=== PATIENT | male | born 1970 | race African-American/Black ===

== ENCOUNTER 2017-04-29 15:57 | Observation (INO) ==
[2017-04-29] MEDS ORDERED: Nitroglycerin 0.4 MG TAB.SUBL SL ONE (16:03)
[2017-04-29] MEDS ORDERED: 0.9 % Sodium Chloride 500 ML IVC ONE (16:03)
[2017-04-29] MEDS ORDERED: Aspirin 81 MG TAB.CHEW PO ONE (16:03)
--- NOTE | 2017-04-29 16:10 | Emergency Department Note ---
Disposition Clinical Impression: Elevated blood pressure reading, Pulmonary nodule Chest pain Qualifiers: Chest pain type: unspecified Qualified Code(s): R07.9 - Chest pain, unspecified Disposition: Admitted As Inpatient Condition: Fair Chest Pain HPI - General Chief Complaint: ED Chest Pain Stated Complaint: chest pain Time Seen by Provider: 04/29/17 16:00 Source: patient Mode of arrival: ambulatory Limitations: no limitations Vital Signs Reviewed: Yes Nursing Notes Reviewed: Yes - History of Present Illness HPI Narrative: 46-year-old male history of hypertension, coronary artery disease on Plavix and aspirin presents for evaluation of chest pain. Patient states the pain is left- sided with radiation to his left shoulder. Notes it happened 3 hours prior to arrival while exerting himself and walking. Notes that the pain has slightly subsided since initial presentation. Patient reports some diaphoresis but no nausea or vomiting. No dyspnea. No cough. No fevers. Patient states that he did have a stress test proximally 3 weeks ago. Patient denies any history of pulmonary embolism. No active cancers. Patient denies any recent trauma or surgery. Severity scale (1-10): 3 - Related Data Allergies Allergy/AdvReac Type Severity Reaction Status Date / Time No Known Allergies Allergy Verified 04/29/17 16:05 All systems ED: reviewed and negative except as stated. Constitutional: Reports: as per HPI. Denies: fever Eyes: Reports: as per HPI ENT ED: Reports: as per HPI Cardiovascular: Reports: as per HPI, chest pain Respiratory: Reports: as per HPI Gastrointestinal: Reports: as per HPI. Denies: abdominal pain, nausea, vomiting Genitourinary: Reports: as per HPI Musculoskeletal: Reports: as per HPI Integumentary: Reports: as per HPI Neurological: Reports: as per HPI Psychiatric: Reports: as per HPI Endocrine: Reports: as per HPI Hematological/Lymphatic: Reports: as per HPI Allergic/Immunologic: Reports: as per HPI Chest Pain PMH - Past Medical History Medical history: Reports: coronary artery disease, hypertension, myocardial infarction Psychiatric history: Reports: anxiety - Social History Smoking Status: Current every day smoker Alcohol use: Reports: none Drug use: Reports: marijuana Physical Exam - General Limitations: no limitations General appearance: alert, in no apparent distress - Head Head exam: atraumatic, normal inspection - Eye Eye exam: Present: normal appearance, EOMI - ENT ENT exam: normal exam, mucous membranes moist - Neck Neck exam: Present: normal inspection, trachea midline - Chest Chest inspection: Present: normal inspection, symmetric chest wall rise - Respiratory Respiratory exam: Present: normal lung sounds bilaterally. Absent: respiratory distress - Cardiovascular Cardiovascular exam: Present: normal rhythm, tachycardia. Absent: systolic murmur - Abdominal Exam Abdominal exam: Present: soft, Non-Tender - Back Exam Back exam: Present: normal inspection. Absent: CVA tenderness (R), CVA tenderness (L) - Neurological Exam Neurological exam: Present: alert, oriented X3 - Skin Skin exam: Present: warm, dry, intact, normal color Course Course Narrative: Patient seen and examined initially upon arrival. Patient appears a couple. Initial EKG obtained. Patient had cardiopulmonary evaluation. Disposition likely admission. - Reevaluation(s) Reevaluation #1: Patient's father states that the patient has not been taking his medication over the past 3-4 days. Patient has not been on his plavix or asprin. Time: 17:14 Reevaluation #2: Patient seen and examined. Patient explained plan of care. Patient states that his pain has improved. Patient states that he has been under a lot of stress recently broke up with his girlfriend. Time: 17:37 Vital Signs Temperature 98.5 F 04/29/17 15:59 Pulse Rate 130 04/29/17 15:59 Respiratory Rate 18 04/29/17 15:59 Blood Pressure 194/116 04/29/17 15:59 O2 Sat by Pulse Oximetry 100 04/29/17 15:59 Temperature 99.3 F 04/29/17 19:25 Pulse Rate 97 04/29/17 19:25 Respiratory Rate 20 04/29/17 19:25 Blood Pressure 164/97 04/29/17 19:25 O2 Sat by Pulse Oximetry 100 04/29/17 19:25 Oxygen Delivery Oxygen Delivery Room Air Chest Pain - MDM Narrative Medical decision making narrative: 46-year-old male presents for evaluation of chest pain. Patient does have risk factors for ACS chest pain. Patient also notes that he has several stressors in his life as he is recently broken up with his girlfriend of 30 years. Patient did have a concerning history with exertional pain that slightly subsided and is resolving in the emergency department. Patient did receive nitroglycerin. Patient was pain-free in the ER. Patient does have risk factors for acute coronary syndrome. Patient has not been taking his Plavix over the past few days. Patient also has not been taking his blood pressure medicine which included a beta jaeyln. Patient was given aspirin as well as Lopressor. Patient's symptoms were controlled in the emergency department. Patient's symptoms does not appear to be related to any pulmonary embolism or other etiology. Patient's pain improved with interventions provided. Patient will be admitted for further cardiac monitoring and cardiac evaluation. - Lab Data Lab results reviewed: Yes I reviewed the patient's lab results. Result diagrams: 04/29/17 16:13 04/29/17 16:13 Lab Results 04/29/17 04/29/17 04/29/17 Range/Units 16:13 16:13 16:13 WBC 10.3 (4.3-11.1) K/mcL RBC 4.39 (4.19-5.50) M/mcL Hgb 13.8 (12.9-16.9) g/dL Hct 39.0 (37.5-50.1) % MCV 88.8 (83.0-100.0) fL MCH 31.4 (28.0-33.3) pg MCHC 35.4 (31.6-35.5) g/dL RDW 12.6 (11.5-14.5) % Plt Count 312 (140-400) K/mcL MPV 10.1 (9.4-12.4) fL Immature Gran % 0.3 (0-4) % Seg Neutrophils % 64.8 % Lymphocytes % 24.4 % Monocytes % 8.0 % Eosinophils % 1.9 % Basophils % 0.6 % Neutrophils # 6.7 (1.6-8.9) K/mcL Lymphocytes # 2.5 (0.6-4.6) K/mcL Monocytes # 0.8 (0.0-1.3) K/mcL Eosinophils # 0.2 (0.0-0.6) K/mcL Basophils # 0.1 (0.0-0.2) K/mcL Sodium 138 (136-145) mEq/L Potassium 3.5 (3.5-4.5) mEq/L Chloride 103 (98-109) mEq/L Carbon Dioxide 18 L (19-29) mEq/L BUN 20 (8-26) mg/dL Creatinine 1.30 H (0.72-1.25) mg/dL Est GFR ( Amer) > 60 (> 60) Est GFR (Non-Af Amer) 59 L (> 60) BUN/Creatinine Ratio 15 (6-26) Glucose 70 (70-99) mg/dL Calculated Osmolality 287 (280-300) Calcium 10.0 (8.6-10.8) mg/dL Troponin I (0-0.03) ng/mL B-Natriuretic Peptide 68 (0-100) pg/mL 04/29/17 Range/Units 16:13 WBC (4.3-11.1) K/mcL RBC (4.19-5.50) M/mcL Hgb (12.9-16.9) g/dL Hct (37.5-50.1) % MCV (83.0-100.0) fL MCH (28.0-33.3) pg MCHC (31.6-35.5) g/dL RDW (11.5-14.5) % Plt Count (140-400) K/mcL MPV (9.4-12.4) fL Immature Gran % (0-4) % Seg Neutrophils % % Lymphocytes % % Monocytes % % Eosinophils % % Basophils % % Neutrophils # (1.6-8.9) K/mcL Lymphocytes # (0.6-4.6) K/mcL Monocytes # (0.0-1.3) K/mcL Eosinophils # (0.0-0.6) K/mcL Basophils # (0.0-0.2) K/mcL Sodium (136-145) mEq/L Potassium (3.5-4.5) mEq/L Chloride (98-109) mEq/L Carbon Dioxide (19-29) mEq/L BUN (8-26) mg/dL Creatinine (0.72-1.25) mg/dL Est GFR ( Amer) (> 60) Est GFR (Non-Af Amer) (> 60) BUN/Creatinine Ratio (6-26) Glucose (70-99) mg/dL Calculated Osmolality (280-300) Calcium (8.6-10.8) mg/dL Troponin I 0.03 (0-0.03) ng/mL B-Natriuretic Peptide (0-100) pg/mL - Radiology Data Radiology results reviewed: Yes I reviewed the patient's radiology results. Chest X-Ray 04/29/17 16:04 IMPRESSION: 7 mm nodule is seen at the right upper lobe and there is asymmetric right apical pleuroparenchymal thickening. While pneumonitis or scarring are most common, malignancy cannot be excluded in the appropriate clinical setting. Radiographic Follow-up to resolution is recommended. If this does not resolve, chest CT would be suggested for further characterization. D/ / Villa Morales MD / Villa Morales MD Interpreting Provider: Villa Morales MD - EKG Data EKG attestation: Yes I reviewed and interpreted this EKG. EKG shows normal: sinus rhythm Rate: tachycardia Rhythm: NSR [place]/QRS: normal ST segment depression in: II Q waves: v1, v2, v3 When compared to previous EKG there are: previous EKG unavailable Interpretation: nonspecific ST-T wave changes Heart Score - Score History: Moderately Suspicious EKG: Non Specific repolarisation Disturbance Age: 45-65 Risk Factors: Equal/Greater than 3 risk factor or history of atherosclerotic disease Troponin: Less than normal limit HEART Score Total: 5 S.B.A.R. - S.B.A.RShaun Situation: Demographics Background: Presenting Complaint Assessment: Vital Signs, Course and respsone to treatment, Patient/Family Expectation Recommendation: Barrier(s) to disposition, Recommendation based on pending studies, treatments, or consults S.B.A.RShaun Report Given to: Dr. Frank MishraBShaunAElsy Repor Time: 18:05 Attestation Statement - Attestation Attestation: I examined this patient and my medical decision-making was reviewed with the GIS TECHNICIAN/PA/Advanced Practice Nurse/Resident Physician. I agree with the documented findings, disposition and treatment plan as described except to the extent set forth below. 46-year-old male presents ED because of chest pain. He has had substernal chest pain intermittently for the past several hours. Radiation into his arm. Denies associated diaphoresis. Complains of exertional provocation of some symptoms similar to when he sat in the past with previous ischemic events. He does have [address] He has been noncompliant with medications including carvedilol and Plavix. He is not taking any of his medications for the past 3-4 days. He does however continue smoking. Denies any cocaine abuse. No stimulant use. Patient has hypotensive and tachycardic. Does not appear to be any acute physiologic distress. Oropharynx is clear. Neck supple. No JVD. Chest scattered expiratory wheezes. Cardiac exam tachycardic but regular. Chest wall is nontender. Abdomen soft nondistended nontender. Extremities warm and dry. No asymmetric edema. EKG consistent with old anteroseptal infarction age undetermined. There is mild ST depression along the inferior leads as well. He was given 5 mg Lopressor with improvement of his heart rate and blood pressure. He received aspirin and nitroglycerin as well with reduction of his pain. He will be admitted for further evaluation.
[2017-04-29 16:47] LABS: Basophils # 0.1 K/mcL (0.0-0.2); Basophils % 0.6 %; Eosinophils # 0.2 K/mcL (0.0-0.6); Eosinophils % 1.9 %; Hemoglobin 13.8 g/dL (12.9-16.9); Immature Granulocytes % 0.3 % (0-4); Lymphocytes # 2.5 K/mcL (0.6-4.6); Lymphocytes % 24.4 %; Mean Corpuscular HGB Conc 35.4 g/dL (31.6-35.5); Mean Corpuscular Hemoglobin 31.4 pg (28.0-33.3); Mean Corpuscular Volume 88.8 fL (83.0-100.0); Mean Platelet Volume 10.1 fL (9.4-12.4); Monocytes # 0.8 K/mcL (0.0-1.3); Neutrophils # 6.7 K/mcL (1.6-8.9); Platelet Count 312 K/mcL (140-400); Red Blood Count 4.39 M/mcL (4.19-5.50); Red Cell Distribution Width 12.6 % (11.5-14.5); Segmented Neutrophils % 64.8 %
[2017-04-29] MEDS ORDERED: *HR* Metoprolol 5 MG/5 ML VIAL IVP ONE (17:01)
[2017-04-29 17:02] LABS: BUN/Creatinine Ratio 15 (6-26); Blood Urea Nitrogen 20 mg/dL (8-26); Carbon Dioxide 18 mEq/L (19-29); Chloride 103 mEq/L (98-109); Glucose 70 mg/dL (70-99); Osmolality,Calculated 287 (280-300); Potassium 3.5 mEq/L (3.5-4.5); Sodium 138 mEq/L (136-145); eGFR For African Americans > 60 (> 60); eGFR For Non-African Americans 59 (> 60)
[2017-04-29] MEDS ORDERED: Acetaminophen 325 MG TABLET PO PRN (19:09)
[2017-04-29] MEDS ORDERED: *HR* Morphine 2 MG/ML SYRINGE IVP PRN (19:09)
[2017-04-29] MEDS ORDERED: *HR* HYDROcodone/Acet 5/325 mg TABLET PO PRN (19:09)
[2017-04-29] MEDS ORDERED: Naloxone 0.4 MG/ML INJ IVP PRN (19:09)
--- NOTE | 2017-04-29 19:16 | Event Note ---
Date of Encounter: 04/29/17 Time of Encounter: 19:13 Patient seen and examined with nurse practitioner. Patient presents with chest pain. Rule out acute coronary syndrome. Continue antischemic medications including dual antiplatelet therapy and beta blockers. His electrocardiogram shows Q waves in V1 to V3, no ST segment shifts. Check Serial troponin. Get records from outside hospital. His last angiogram was in November 2015. Cardiology consultation. Continuous telemetry monitoring
[2017-04-29] MEDS ORDERED: Nitroglycerin 0.4 MG TAB.SUBL SL PRN (19:22)
--- NOTE | 2017-04-29 20:38 | Internal Med History&Physical ---
Date of Encounter: 04/29/17 Time of Encounter: 18:30 Assessment and Plan (1) Chest pain Current visit: Yes Status: Acute Assess: Mr. Jack presents with chief complaint of left sided chest pain with radiation to his left shoulder which is worse with inspiration. Patient reports this is occurring intermittently for the past 2-3 weeks. He reports chest pain today occurred 3 hours prior to arriving to ED where he was walking and exerting himself. Mr. Jack reports diaphoresis with the chest pain but denies nausea vomiting, dyspnea, or diarrhea. Patient also denies cough, fever, or recent illness. Plan: Cardiology consult ordered Continuous cardiac telemetry ordered Trend troponins x2 Continue carvedilol Continue Plavix Continue aspirin Continue Lopressor Continue lisinopril Continue atorvastatin Obtain old EKG Supplemental O2 ordered with titration if SPO2 less than 92% INR/APTT ordered Lipid panel ordered Nitroglycerin 0.4 mg SL Q5MIN PRN ordered Cardiac diet ordered Monitor patient and vital signs Qualifiers: Chest pain type: unspecified Qualified Code(s): R07.9 - Chest pain, unspecified (2) Pulmonary nodule Current visit: Yes Status: Acute Assess: Patient presents with new diagnosis of 7 mm nodule at right upper lobe with asymmetric right apical pleuroparenchymal thickening. While pneumonitis or scarring her most common, malignancy cannot be excluded in appropriate clinical setting. Radiographic follow-up to resolution is recommended. Chest CT would be suggested for further characterization. Plan: CT of chest ordered Will consider pulmonology consult based on results of CT scan of chest (3) Hypertension Current visit: Yes Status: Chronic Assess: Patient presents with history of chronic hypertension. Plan: Continue Lopressor Continue lisinopril Continue Carvedilol Monitor patient and vital signs Qualifiers: Hypertension type: essential hypertension Qualified Code(s): I10 - Essential (primary) hypertension (4) CAD (coronary artery disease) Current visit: Yes Status: Chronic Assess: Patient presents with history of chronic coronary artery disease. Plan: Continue carvedilol Continue Plavix Continue aspirin Continue Lopressor Continue lisinopril Continue atorvastatin Lipid panel ordered Cardiac diet ordered Qualifiers: Coronary Disease-Associated Artery/Lesion type: unspecified vessel or lesion type [place] vs. transplanted heart: [place] heart Associated angina: angina presence unspecified Qualified Code(s): I25.10 - Atherosclerotic heart disease of [place] coronary artery without angina pectoris (5) DVT prophylaxis Current visit: Yes Status: Acute Assess: Patient to be placed on DVT prophylaxis due to inpatient protocol, history of CAD, and current chest pain status. Plan: SCDs ordered bilaterally for lower legs Continue Plavix Continue aspirin therapy Internal Medicine - H&P: HPI Chief complaint: Chest pain Admitted From: Emergency Dept Plans for Post Hospital Care: Home History of present illness: Mr. Jack is a 46 year old male presents from the ED with chief complaint of left sided chest pain with radiation to his left shoulder which is worse with inspiration. Patient reports this is occurring intermittently for the past 2-3 weeks. He reports chest pain today occurred 3 hours prior to arriving to ED where he was walking and exerting himself. Mr. Jack reports diaphoresis with the chest pain but denies nausea vomiting, dyspnea, or diarrhea. Patient also denies cough, fever, or recent illness. Mr. Jack also denies any recent trauma , surgery, active cancer, history of pulmonary embolisms. Patient reports having a stress test to 3 weeks ago at [facility]. He also reports not taking any of his medications or eating for the past 3 days due to a breakup in his relationship. States he was given home oxygen in the past but does not use currently. She reports she is a current smoker, smoking one half pack per day and occasionally uses marijuana. He denies alcohol use. Patient has a history of coronary artery disease, hypertension, myocardial infarction (see November 2015), and anxiety. Patient is to be admitted as observation status with continuous cardiac telemetry, trending troponins 2, a consult for cardiology which has been ordered in placed, and nitroglycerin when necessary. In order for records from [facility] has been placed for the patient's stress test results as well as any other cardiac pathology testing and results. Patient to be monitored closely. Past Med Surg Social Fam HX - Past Medical History Source: patient Medical history: coronary artery disease, hypertension, myocardial infarction ( November 2015) Psychiatric history: anxiety - Past Surgical History Surgical History: angioplasty/stent, appendectomy, other - Social History Smoking Status: Current every day smoker Packs per day: 1 PPD Smokeless Tobacco Status: No Alcohol use: none Drug use: marijuana Current living situation: Home, With Family Activity Level: Independent ambulation Recent Out of Country Travel Within the Last 8 Weeks: No Exposure or Possible Exposure to Illness During Travel: No - Family History Mother Age: 68 Race: Family Member Ethnicity: Non- Living Status: Still Living Hx Family Cardiac Disorders: Yes (HTN) Hx Family Endocrine Disorder: Yes (DM) Hx Family Musculoskeletal Disorders: Yes (Arthritis) Father Race: Family Member Ethnicity: Non- Living Status: Still Living Hx Family Cardiac Disorders: Yes (HTN) Sister Race: Family Member Ethnicity: Non- Living Status: Still Living Hx Family Medical Disorders: No Internal Medicine - H&P: Meds Aspirin Enteric Coated [Aspirin EC] 81 mg PO DAILY 04/29/17 [History] Atorvastatin Calcium [Lipitor] 80 mg PO HS 04/29/17 [History] Carvedilol 3.125 mg PO BID 04/29/17 [History] Citalopram [CeleXA] 10 mg PO DAILY 04/29/17 [History] Clopidogrel [Plavix] 75 mg PO DAILY 04/29/17 [History] Lisinopril [Zestril] 20 mg PO DAILY 04/29/17 [History] Naproxen Sodium [Naproxen Sodium Cr] 500 mg PO BID 04/29/17 [History] Ondansetron [Zofran] 8 mg PO Q8HR 04/29/17 [History] Pantoprazole Sodium [Protonix] 40 mg PO DAILY 04/29/17 [History] Ranolazine [Ranexa] 500 mg PO DAILY 04/29/17 [History] Triamterene/HCTZ 37.5/25mg [Dyazide] 1 each PO DAILY 04/29/17 [History] Allergies No Known Allergies Allergy (Verified 04/29/17 16:05) All Systems PM: A 10-system review of systems was performed and is negative for pertinent findings except as documented above in the HPI. - Constitutional Constitutional: as per HPI, anorexia - EENT Eyes: no change in vision, no discharge, no pain, no photophobia Ears: no ear discharge, no ear pain, no tinnitus Nose, mouth and throat: no dysphagia, no nasal discharge, no neck pain, no sore throat - Breasts Breasts: as per HPI - Cardiovascular Cardiovascular ROS IM: as per HPI, chest pain, diaphoresis - Respiratory Respiratory: no cough, no dyspnea, no wheezing, no excessive phlegm production - Gastrointestinal Gastrointestinal: no abdominal pain, no diarrhea, no hematemesis, no hematochezia, no melena, no nausea, no vomiting - Genitourinary Genitourinary ROS male: as per HPI - Musculoskeletal Musculoskeletal ROS IM: no numbness, no tingling - Integumentary Integumentary IM: no rash, no unusual bruising - Neurological Neurological ROS: no confusion, no convulsions, no focal weakness, no numbness, no tingling, no tremor(s) - Psychiatric Psychiatric: as per HPI - Endocrine Endocrine IM: as per HPI - Hematologic/Lymphatic Hematologic/Lymphatic: no easy bruising - Allergic/Immunologic Allergic/Immunologic: as per HPI - Constitutional Vitals: Temp Pulse Resp BP Pulse Ox 99.3 F 97 20 164/97 100 04/29/17 19:25 04/29/17 19:25 04/29/17 19:25 04/29/17 19:25 04/29/17 19:25 General appearance: Present: cooperative, A&O X 3, pleasant, no acute distress, answers questions appropriately - Head Head exam: Present: atraumatic, normocephalic - Eye Eye exam: Present: PERRL, conjuntiva pink, sclera anicteric Pupils: Present: PERRL - ENT ENT exam: Present: normal exam, normal external ear exam - Neck Neck exam general surgery: Present: supple, trachea midline. Absent: lymphadenopathy - Respiratory Respiratory exam: Present: CTAB. Absent: accessory muscle use, rales, rhonchi, wheezes - Cardiovascular Cardiovascular exam: Present: tachycardia - GI/Abdominal GI/Abdominal exam: Present: normal bowel sounds, soft, no peritoneal signs. Absent: distended, tenderness - Rectal Rectal exam: Present: deferred - Additional comments: exam deferred. - Extremities Exam Extremities exam: Present: warm, radial pulses palpable and symetrical. Absent : calf tenderness, cyanotic, pedal edema - Back Exam Back exam: Present: normal inspection - Neurological Exam Neurological exam: Present: CN II-XII intact, oriented X3, no focal deficits. Absent: pronater drift, facial droop, speech deficit - Psychiatric Psychiatric exam: Present: normal affect, normal mood - Skin Skin exam: Present: dry, intact Internal Med - H&P Results - Labs CBC & Chem 7: 04/29/17 16:13 04/29/17 16:13 - EKG Data EKG shows normal: sinus rhythm Rate: tachycardia - EKG Data Prior EKG available for review: no EKG comments: 04/29/17 20:46 EKG dated 04/29/17 shows sinus tachycardia, anteroseptal myocardial infarction [ 40+ ms Q wave in V1-V4] of indeterminate age. - Diagnostic Studies Chest x-ray Additional comments: Impressions Chest X-Ray 04/29/17 16:04 IMPRESSION: 7 mm nodule is seen at the right upper lobe and there is asymmetric right apical pleuroparenchymal thickening. While pneumonitis or scarring are most common, malignancy cannot be excluded in the appropriate clinical setting. Radiographic Follow-up to resolution is recommended. If this does not resolve, chest CT would be suggested for further characterization. D/ / Villa Morales MD / Villa Morales MD Interpreting Provider: Villa Morales MD
[2017-04-29] MEDS ORDERED: *HR* Heparin 5,000 UNIT/ML VIAL SQ SCH (22:00)
[2017-04-30 05:22] LABS: Prothrombin Time 10.7 Seconds (9.4-12.1)
[2017-04-30 05:24] LABS: Basophils # 0.1 K/mcL (0.0-0.2); Basophils % 0.7 %; Eosinophils # 0.5 K/mcL (0.0-0.6); Eosinophils % 4.5 %; Hematocrit 40.4 % (37.5-50.1); Hemoglobin 13.9 g/dL (12.9-16.9); Immature Granulocytes % 0.4 % (0-4); Lymphocytes # 3.4 K/mcL (0.6-4.6); Lymphocytes % 32.7 %; Mean Corpuscular HGB Conc 34.4 g/dL (31.6-35.5); Mean Corpuscular Hemoglobin 31.3 pg (28.0-33.3); Mean Platelet Volume 9.9 fL (9.4-12.4); Monocytes # 0.9 K/mcL (0.0-1.3); Monocytes % 8.9 %; Neutrophils # 5.5 K/mcL (1.6-8.9); Platelet Count 316 K/mcL (140-400); Red Blood Count 4.44 M/mcL (4.19-5.50); Red Cell Distribution Width 12.7 % (11.5-14.5); Segmented Neutrophils % 52.8 %
[2017-04-30 05:25] LABS: Activated Partial Thrombo Time 31.3 Seconds (26.0-36.0)
[2017-04-30 05:38] LABS: Alanine Aminotransferase 53 Units/L (0-55); Albumin 3.6 g/dL (3.5-5.0); Albumin/Globulin Ratio 1.1 (1.1-2.2); Alkaline Phosphatase 70 Units/L (38-126); Aspartate Amino Transferase 43 Units/L (5-34); BUN/Creatinine Ratio 16 (6-26); Bilirubin,Total 0.7 mg/dL (0.2-1.2); Blood Urea Nitrogen 20 mg/dL (8-26); Calcium 9.4 mg/dL (8.6-10.8); Carbon Dioxide 26 mEq/L (19-29); Chloride 105 mEq/L (98-109); Chol/HDL Ratio 4.2 (0-4.9); Cholesterol 162 mg/dL (< 200); Globulin 3.2 g/dL (2.4-3.5); Glucose 68 mg/dL (70-99); HDL Cholesterol 39 mg/dL (40-59); LDL Cholesterol,Calculated 112 mg/dL (0-99); Osmolality,Calculated 291 (280-300); Potassium 4.1 mEq/L (3.5-4.5); Sodium 140 mEq/L (136-145); Total Protein 6.8 g/dL (6.0-8.3); Triglycerides 57 mg/dL (< 150); eGFR For African Americans > 60 (> 60); eGFR For Non-African Americans > 60 (> 60)
[2017-04-30] MEDS ORDERED: Aspirin Enteric Coated 81 MG Tablet PO SCH (09:00)
[2017-04-30] MEDS ORDERED: Lisinopril 20 MG TABLET PO SCH (09:00)
[2017-04-30] MEDS ORDERED: Ranolazine 500 MG TAB.ER.12H PO SCH (09:00)
--- NOTE | 2017-04-30 09:49 | Cardiology Consult Note ---
Date of Encounter: 04/30/17 Time of Encounter: 09:41 Assessment and Plan (1) Chest pain Current Visit: Yes Status: Acute Typical chest pain symptoms. Mild flat troponin at 0.03, 0.04, 0.04 in the setting of CKD and uncontrolled HTN. EKG show ST, HR 125 BPM, Q waves in the anterior and septal leads. History of NC 11/2015. He reports non-compliance with medications. Importance of taking medications reviewed with patient. Smoking cessation discussed. Reports abnormal stress test two weeks ago at [facility]. Follows with Dr. Magana. Records ordered. Further recommendations pending records. Qualifiers: Chest pain type: unspecified Qualified Code(s): R07.9 - Chest pain, unspecified (2) Hypertension Current Visit: Yes Status: Acute Uncontrolled hypertension. Patient reports non-compliance with medications. B/p now acceptable. Qualifiers: Hypertension type: essential hypertension Qualified Code(s): I10 - Essential (primary) hypertension (3) CAD (coronary artery disease) Current Visit: Yes Status: Chronic H/o NC in November 2015 s/p PCI at [facility]. Continue asa, statin, bb, plavix, and Ranexa. Qualifiers: Coronary Disease-Associated Artery/Lesion type: unspecified vessel or lesion type [place] vs. transplanted heart: [place] heart Associated angina: angina presence unspecified Qualified Code(s): I25.10 - Atherosclerotic heart disease of [place] coronary artery without angina pectoris Discussion w patient/family: The assessment and plan as outlined above was discussed with the patient and/or family members who expressed understanding and agreement. All questions were answered. Thank you for involving us in the care of your patient. Please call with any questions. History of Present Illness Consult date: 04/30/17 Requesting physician: Paula Pires Consult reason: Chest pain Chief complaint: Chest pain History of present illness: Mr. Jack is a 46 year old male with a past medical history of NC s/p PCI 2015 at [facility], HTN, and CKD who presented with chest pain. He reports midsternal chest pain radiating to his left neck and dyspnea when he was arguing with someone. He did not have his nitroglycerine on him so he presented to the hospital. He reports intermittent chest pain with exertion over the past two weeks that resolves with rest and SL NTG. He follows with Dr. Magana in [place] and underwent a stress test two weeks ago. He states the results were "mena" and he was discussing having a [facility]. He stopped taking all of his medications four days ago. He says he often does not take his medications because he does not like to take pills. His b/p was found to be 196/ 116 on admission. Lab work revealed creatinine 1.30, troponin 0.03, 0.04, 0.04. There are no previous labs to compare. Past Med Surg Social Fam HX - Past Medical History Medical history: coronary artery disease, hypertension, myocardial infarction ( November 2015) Psychiatric history: anxiety - Past Surgical History Surgical History: angioplasty/stent, appendectomy, other - Social History Smoking Status: Current every day smoker Packs per day: 1 PPD Smokeless Tobacco Status: No Alcohol use: none Drug use: marijuana - Family History Mother Age: 68 Race: Family Member Ethnicity: Non- Living Status: Still Living Hx Family Cardiac Disorders: Yes (HTN) Hx Family Endocrine Disorder: Yes (DM) Hx Family Musculoskeletal Disorders: Yes (Arthritis) Father Race: Family Member Ethnicity: Non- Living Status: Still Living Hx Family Cardiac Disorders: Yes (HTN) Sister Race: Family Member Ethnicity: Non- Living Status: Still Living Hx Family Medical Disorders: No Medications and Allergies Aspirin Enteric Coated [Aspirin EC] 81 mg PO DAILY 04/29/17 [History] Atorvastatin Calcium [Lipitor] 80 mg PO HS 04/29/17 [History] Carvedilol 3.125 mg PO BID 04/29/17 [History] Citalopram [CeleXA] 10 mg PO DAILY 04/29/17 [History] Clopidogrel [Plavix] 75 mg PO DAILY 04/29/17 [History] Lisinopril [Zestril] 20 mg PO DAILY 04/29/17 [History] Naproxen Sodium [Naproxen Sodium Cr] 500 mg PO BID 04/29/17 [History] Ondansetron [Zofran] 8 mg PO Q8HR 04/29/17 [History] Pantoprazole Sodium [Protonix] 40 mg PO DAILY 04/29/17 [History] Ranolazine [Ranexa] 500 mg PO DAILY 04/29/17 [History] Triamterene/HCTZ 37.5/25mg [Dyazide] 1 each PO DAILY 04/29/17 [History] Allergies No Known Allergies Allergy (Verified 04/29/17 16:05) All Systems Review: A 10-system review of systems was performed and is negative for pertinent findings except as documented above in the HPI. Physical Examination Vital Signs, Last 4 Hours Temp Pulse Resp BP Pulse Ox 04/30/17 09:22 99 04/30/17 07:25 98.4 F 89 17 147/93 99 General: Conversant, No Apparent Distress HEENT: Atraumatic, Normocephaly, Mucus Membranes Moist Neck: No JVD, Normal carotid pulses Cardiac: Reg Rate and Rhythm, Normal S1 and S2, No Murmur Lungs: Normal Breath Sounds, No Wheeze, Rales, Rhonchi Neuro: Alert and responsive, No focal deficits noted Abdomen: Soft, Non-Tender Skin: No rashes noted on visualized skin Musculoskeletal: No Chest Wall Tenderness Extremities: No Clubbing, No Cyanosis, No Edema, Normal Pulses Results 04/30/17 04:53 04/30/17 04:53 Lab Results 04/29/17 04/29/17 04/30/17 19:46 22:15 04:53 WBC 10.3 Hgb 13.9 Hct 40.4 Plt Count 316 INR APTT D-Dimer 234 Sodium Potassium Chloride Carbon Dioxide BUN Creatinine Glucose Calcium Magnesium Total Bilirubin AST ALT Alkaline Phosphatase Troponin I 0.04 H* B-Natriuretic Peptide 04/30/17 04/30/17 04/30/17 04:53 04:53 04:53 WBC Hgb Hct Plt Count INR 1.0 APTT 31.3 D-Dimer Sodium 140 Potassium 4.1 Chloride 105 Carbon Dioxide 26 BUN 20 Creatinine 1.26 H Glucose 68 L Calcium 9.4 Magnesium 2.0 Total Bilirubin 0.7 AST 43 H ALT 53 Alkaline Phosphatase 70 Troponin I B-Natriuretic Peptide 90 04/30/17 04:53 WBC Hgb Hct Plt Count INR APTT D-Dimer Sodium Potassium Chloride Carbon Dioxide BUN Creatinine Glucose Calcium Magnesium Total Bilirubin AST ALT Alkaline Phosphatase Troponin I 0.04 H* B-Natriuretic Peptide - EKG Interpretation EKG results cardiology: personally reviewed (Sinus tachycardia, HR 125. Q waves noted in anteroseptal leads.) Consult Discharge Plan - Plan Referrals: NO,PCP [Primary Care Provider] -
[2017-04-30] MEDS ORDERED: Verapamil 5 MG/2 ML VIAL ONE (13:14)
[2017-04-30] MEDS ORDERED: *HR* Heparin 10,000 UNIT/10 ML VIAL ONE (13:15)
[2017-04-30] MEDS ORDERED: 0.9 % Sodium Chloride 2,000 ML ONE (13:15)
[2017-04-30] MEDS ORDERED: Nitroglycerin 1,000 MCG/10 ML VIAL IV ONE (13:15)
[2017-04-30] MEDS ORDERED: Heparin 1,000 UNITS/500 mL NS 500 ML ONE (13:15)
--- NOTE | 2017-04-30 14:18 | Pre-Sedation Evaluation ---
Pre-sedation evaluation - Pre-sedation checklist Date of procedure: 04/30/17 Procedure: [facility] Recent Vitals: Last Vital Signs Temp 98.1 F 04/30/17 11:16 Pulse 99 04/30/17 11:16 Resp 18 04/30/17 11:16 BP 145/94 04/30/17 11:16 Pulse Ox 97 04/30/17 11:16 H&P (including ROS) documented in medical record: Yes Previous reaction to sedatives/anesthetics: No Dietary Status: NPO 6 hours prior to procedure Dentition: poor dentition ASA Classification *see protocol: CLASS II-Mild systemic disease Plan of Care: Pt appropriate candidate for procedure/moderate/conscious sedation , Risks/benefits of procedure/sedation discussed w/ patient/family
[2017-04-30] MEDS ORDERED: *HR* FentaNYL (PF) 100 MCG/2 ML VIAL ONE (14:26)
[2017-04-30] MEDS ORDERED: *HR* Midazolam HCl 2 MG/2 ML VIAL ONE ×2 (14:26→14:43)
[2017-04-30] MEDS ORDERED: *HR* Adenosine 6 MG/2 ML VIAL IVP ONE (14:53)
--- NOTE | 2017-04-30 15:28 | Invasive Diagnostic Lab Proc ---
Name: Carl Jack Date of Study: 04/30/2017 Date: 1970 Ht: 70.9in Medical Record#: [id number] Age: 46 Wt: 163.14lb Gender: Male BSA: 1.93 Order #: [id number] BMI: 22.84 Physicians Procedure Physician: Oswaldo Mancilla MD, [facility] Referring MD: Referring MD: Staff Name Position Time In Martha Saeed RT Monitor 02:28 PM Varghese Valverdee RT (R) Scrub 02:28 PM Sonya Costa RN Client Business Manager 02:28 PM Indications Indication Unstable Angina Procedures Performed Procedure L HRT ARTERY/VENTRICLE ANGIO IV Doppler BLD Flow 1st Vessel Pre-Procedure Checklist Informed consent is complete signed and on chart. H\\T\\P is on chart. ID band is on and ID verified with patient. Patient NPO for procedure The procedure was described for the patient and questions were answered. Blood Pressure: 145/94 ECG is on chart. Plan of Care Patient will tolerate the procedure without complications. Adequate level of comfort will be maintained. Hemodynamics will remain stable Patient will recover from procedure without complications. Respiratory function will be maintained. Cardiac rhythm will remain stable. Patient temperature will be maintained. Patient and/or family have verbalized understanding of the procedure. Patient Education Chief Complaint/Reason for Test: Cardiac Cath Developmental Category: Adult (18-64 years) Developmentally Appropriate for Age: Yes Learning Barriers: None Education Needs: Procedure Education Method: Verbal Information Taught: Cardiac Cath Educational Evaluation: Able to repeat information Intravenous Access Time IV Size Location DC'd Fluid/Drip Rate Units RN 02:20 PM 18g 1 /" Patent On Arrival Lt Antecubital 0.9NaCl 25 ml/hr Sonya Costa RN Allergies No Known Allergies Vital Signs Time BP (mmHg) HR (bpm) O2 Sat. RR (bpm) LOC 145 / 94 99 97 % 18 02:29 PM / % 5 = Fully awake and oriented or at pre-proc level 02:29 PM / % 4 = Oriented but drowsy 02:44 PM / % 4 = Oriented but drowsy 02:59 PM / % 4 = Oriented but drowsy 02:21 PM 126 / 75 85 94 % 02:26 PM 137 / 86 77 100 % 16 02:31 PM 131 / 82 87 100 % 22 02:36 PM 116 / 99 94 100 % 10 02:41 PM 126 / 90 84 97 % 22 02:46 PM 73 / 61 95 98 % 12 02:47 PM 82 / 55 106 96 % 23 02:50 PM 115 / 66 82 98 % 13 02:51 PM 109 / 62 86 98 % 02:56 PM 115 / 66 79 98 % 26 03:01 PM 120 / 73 80 99 % 21 03:06 PM 123 / 69 77 98 % 18 03:12 PM 127 / 71 67 98 % 14 Procedural Medications Time Medication Dose Units Method Given By 02:34 PM Oxygen 2 L/min nasal cannula Igor, Sonya RAZO 02:34 PM Versed 2 mg Intravenous [place], Sonya RAZO 02:35 PM Fentanyl 50 mcg Intravenous Igor, Sonya RAZO 02:43 PM Versed 1 mg Intravenous Igor, Sonya RAZO 02:43 PM Fentanyl 25 mcg Intravenous Igor, Sonya RAZO 02:43 PM Lidocaine 2% 0.5 ml Subcutaneous Oswaldo Mancilla MD, [facility] 02:44 PM Heparin 4000 units Nitroglycerin 200 mcg Verapamil 2.5 mg Intraarterial Oswaldo Mancilla MD, [facility] 02:49 PM Nitroglycerin 200 mcg Intracoronary Oswaldo Mancilla MD 03:10 PM Versed 1 mg Intravenous Igor, Sonya RAZO 03:10 PM Fentanyl 25 mcg Intravenous Igor, Sonya RAZO 03:11 PM Adenosine 200 mcg Intracoronary Oswaldo Mancilla MD, [facility] 03:12 PM Adenosine 200 mcg Intracoronary Oswaldo Mancilla MD, [facility] ASA Classification: CLASS II- Mild systemic disease (i.e. well-controlled diabetes, hypertension, asthma, cigarette smoking) Jessica Score Preprocedure Postprocedure Activity 2- Moves 4 extremities sustained head lift Activity 2- Moves 4 extremities sustained head lift Circulation 2- SBP +/= 20 points of pre-anesthetic level Circulation 2- SBP +/= 20 points of pre-anesthetic level Consciousness 2- Awake and alert oriented x 3 Consciousness 2- Awake and alert oriented x 3 O2 Saturation 2- Able to maintain O2 satruation of 92% on room air O2 Saturation 2- Able to maintain O2 satruation of 92% on room air Respiratory 2- Able to deep breathe and cough well Respiratory 2- Able to deep breathe and cough well Total Score 10 Total Score 10 Contrast Agent: Isovue Diagnostic Contrast: 68 ml Total Contrast: 68 ml Fluoro Dose: 97 mGy Activated Clotting Time Time Seconds to Clot 03:03 PM 400 Procedure Log Time Note Enter By 02:21 PM CathStat 02:21 PM Vitals capture started with the following parameters, Patient=Adult, Interval=5 min, Initial Iawtcywq=815 mmHg, Deflation Rate=5 mmHg, Cuff placed on Left Arm 02: PM HR=85 bpm, BWQN=623/75 mmhg, SpO2=94.0 %, Comment=sr 02:26 PM HR=77 bpm, ZWRT=730/86 mmhg, RjC6=227 %, Resp=16 B/min 02: PM Pt arrived to wharf laborer 1 at 14: kkallner : PM Martha Saeed RT Position: Monitor Time in: :ner PM Ratna Valverde RT (R) Position: Scrub Time in: : PM Sonya Costa RN Position: Client Business Manager Time in: : kkner : PM Patient charges- Angio tray pack, Navilyst 3mm J, Pulse Oximetry and ACIST tubing and transducer kkner : PM Case Delayed No kk PM Hair removed from procedure site in procedure lab using clippers. Right wrist prepped with Chloraprep by Martha Saeed, safety strap applied then patient was draped. Skin intact. kk: PM Physician arrived : kkallner PM ASA Class CLASS II- Mild systemic disease (i.e. well-controlled diabetes, hypertension, asthma, cigarette smoking) kkallner : PM Meet and greet completed PM Sign in performed according to hospital policy. : PM Procedure start : PM Time: 14:29 Patient comfortable and pain free: Yes PM Time: 14:LOC: 5 = Fully awake and oriented or at pre-proc level kkall PM Clinical Presentation: Unstable angina kkall:31 PM HR=87 bpm, TJNE=725/82 mmhg, QoP1=764.0 %, Resp=22 B/min 02:34 PM Time: 14:34 Oxygen on at 2 L/min per nasal cannula by Sonya Costa RN kkallner 02:34 PM Time: 14:34 Versed 2 mg Intravenous Given by Sonya Cotsa RN kkner 02:35 PM Time: 14:35 Fentanyl 50 mcg Intravenous Given by Sonya Costa RN kkner 02:36 PM HR=94 bpm, PYNT=296/99 mmhg, CsT7=124.0 %, Resp=10 B/min, Comment=sr 02:37 PM Pressure channel 1 zeroed. 02:41 PM HR=84 bpm, SNCC=595/90 mmhg, SpO2=97.0 %, Resp=22 B/min 02:43 PM Time out performed according to hospital policy 02:43 PM Time: 14:43 Versed 1 mg Intravenous Given by Sonya Costa RN kkdelia 02:43 PM Time: 14:43 Fentanyl 25 mcg Intravenous Given by Sonya Costa RN kk 02:43 PM Time: 14:43 .5 ml Lidocaine 2% to right radial Subcutaneous Given by Oswaldo Mancilla MD, [facility] kkallner 02:44 PM Access obtained by percutaneous puncture. 6Fr 10cm Terumo Glidesheath sheath placed in right Radial artery. [id number] all 02:44 PM Time: 14:29LOC: 4 = Oriented but drowsy 02:44 PM Time: 14:29 Patient comfortable and pain free: Yes all 02:44 PM Time: 14:44 Patient given 4,000 units Heparin, 200 mcg Nitroglycerin, and 2.5 mg Verapamil Intraarterial by Oswaldo Mancilla MD, [facility] kkallner 02:45 PM 5Fr TIG catheter inserted over the wire [facility] kkall 02:45 PM wire removed kkallner 02:46 PM Catheter selectively placed in left ventricle kkallner 02:46 PM HR=95 bpm, NIBP=73/61 mmhg, SpO2=98.0 %, Resp=12 B/min 02:46 PM Recorded Pressure: LV, HR=96, Condition=Condition 1 (Left Ventricle) LV 78/2/6 02:46 PM Bolus angiogram of left Ventricle complete: 10 ml/sec for a total of 30 mls kkallner 02:47 PM NIBP STAT measurement started. 02:47 PM XX=702 bpm, NIBP=82/55 mmhg, SpO2=96.0 %, Resp=23 B/min 02:47 PM Recorded Pressure: LV, Ao, HR=89, Condition=Condition 1 (Left Ventricle) LV 76/4/3, (Aorta) Ao 85/24/52 02:47 PM TIG repositioned into LCA kkallner 02:48 PM Recorded Pressure: Ao, HR=91, Condition=Condition 1 (Aorta) Ao 94/82/88 02:48 PM LCA angiography performed in multiple views. kkallner 02:49 PM NIBP STAT measurement started. 02:49 PM TIG repostioned into RCA kkallner 02:49 PM RCA angiography performed in multiple views. kkallner 02:49 PM Recorded Pressure: Ao, HR=84, Condition=Condition 1 (Aorta) Ao 101/84/93 02:49 PM Time: 14:49 Nitroglycerin 200 mcg Intracoronary Given by Oswaldo Mancilla MD kkallner 02:50 PM HR=82 bpm, QMYO=247/66 mmhg, SpO2=98.0 %, Resp=13 B/min 02:51 PM HR=86 bpm, HEQA=354/62 mmhg, SpO2=98.0 % 02:53 PM Catheter removed kkallner 02:54 PM 6Fr JR 4 Runway guide catheter was used to cannulate the PCI vessel successfully. reused? No kkallner 02:54 PM wire removed kkallner 02:54 PM Inflation device was opened. kkallner 02:56 PM HR=79 bpm, ISDB=735/66 mmhg, SpO2=98.0 %, Resp=26 B/min 02:59 PM Time: 14:44 Patient comfortable and pain free: Yes all 02:59 PM Time: 14:44LOC: 4 = Oriented but drowsy kkallner 02:59 PM Lesion found in Mid Circumflex. Pre Stenosis: 20 Pre NIYAH Flow: allner 03:01 PM HR=80 bpm, EVGC=041/73 mmhg, SpO2=99.0 %, Resp=21 B/min 03:03 PM At 15:03 the ACT was 400 seconds. kkallner 03:06 PM HR=77 bpm, ZOEC=097/69 mmhg, SpO2=98.0 %, Resp=18 B/min 03:10 PM [employer] wire advanced to target lesion. allner 03:10 PM Time: 15:10 Versed 1 mg Intravenous Given by [place], Sonya RN kkallner 03:10 PM Time: 15:10 Fentanyl 25 mcg Intravenous Given by Sonya Costa RN kkallner 03:11 PM Time: 15:11 Adenosine 200 mcg administered Intracoronary by Oswaldo Mancilla MD, [facility] kkallner 03:11 PM FFR Measurement: 0.86 kkallner 03:12 PM Lesion found in Proximal RCA. Pre Stenosis: 60 Pre NIYAH Flow: kkallner 03:12 PM Left Main Coronary Artery with 0% stenosis kkallner 03:12 PM Proximal Left Anterior Descending Coronary Artery with 0% stenosis. If graft is supplying this territory, 0 % stenosis. kkallner 03:12 PM Mid/Distal Left Anterior Descending Coronary Artery and diagonal branches with 0% stenosis. If graft is supplying this area, 0 % stenosis kkallner 03:12 PM Circumflex, Obtuse Marginal, Left Posterior Descending, and Left Posterolateral Coronary Arteries with 20 % stenosis. If graft is supplying this area, 0 % stenosis kkallner 03:12 PM HR=67 bpm, RQZX=727/71 mmhg, SpO2=98.0 %, Resp=14 B/min 03:12 PM Right Coronary, Right Posterior Descending Arteries with Right Posterolateral and Acute Marginal branches with 60 % stenosis. If graft is supplying this area, 0 % stenosis kkallner 03:12 PM Ramus with 0% stenosis. If graft is supplying this area, 0 % stenosis kkallner 03:12 PM Time: 15:12 Adenosine 200 mcg administered Intracoronary by Oswaldo Mancilla MD, [facility] kkallner 03:12 PM FFR Measurement: 0.89 kkallner 03:14 PM Time: 14:59LOC: 4 = Oriented but drowsy kkallner 03:14 PM Time: 14:59 Patient comfortable and pain free: Yes kkallner 03:15 PM Procedure completed at 15:15 kkallner 03:15 PM Sign out completed: Radiation Dose 97.44 mGy Fluoro Time: 3.0 Isovue 370 - 200ml contrast 68 ml given by Oswaldo Mancilla MD, FACC. Complications: NoneCardiac Rehab Consult needed: NoConfirmed administered medications: Yes kkallner 03:15 PM Isovue 370 - 200ml,1 Bottle(s) used. kkallner 03:15 PM 12 ml air in Vasc Band. kkallner 03:15 PM Post ECG NSR kkallner 03:15 PM Post Blood Pressure 127/71 kkallner 03:15 PM 15:15 Post Pulses Rt Radial 2+ kkallner 03:16 PM Information taught Cardiac Cath and Vasc Band kkallner 03:16 PM Education needs Procedure, Plan of Care, and Responsibilities of Patient in Care kkallner 03:16 PM Learning barriers :None kkallner 03:16 PM Education Methods Verbal kkallner 03:16 PM Education evaluation Able to repeat information kkallner 03:16 PM Site status No bleeding/hematoma - Rt Wrist as reported by Ratna Valverde RT (R) at 15:16 kkallner 03:16 PM Plavix, Effient or Brilinta given No kkallner 03:16 PM Delay to floor No kkallner 03:16 PM Patient out of room: 15:16 kkallner 03:16 PM no family at this time kkallner 03:16 PM Complications: None kkallner 03:16 PM Fluoro Time: 3 kkallner 03:16 PM Isovue 370 - 200ml contrast 68 ml given by Oswaldo Mancilla MD, FACC. kkallner 03:16 PM Radiation Dose 97.44 mGy kkallner 03:17 PM Coronary Dominance: right kkallner 03:22 PM Report given to 3B RN Pt [facility] to 3B [facility] Com[facility] Complication None None Hemodynamics Pressures Site Systolic/A Wave Diastolic/V Wave Mean LV 78 2 6 LV 76 4 3 AO 85 24 52 AO 94 82 88 AO 101 84 93 Post Procedure Information Blood Pressure: 127/71 mmHg Rhythm: NSR Post procedural instructions were given Site Checks Time Location Status Staff Sheath In? Note 03:16 PM Rt Wrist No bleeding/hematoma Ratna Valverde RT (R) Pulses Time Site Pre-Procedure Post-Procedure Note Bilateral DP \\T\\ PT 2+ Bilateral radial 2+ 3:15:00 PM Rt Radial 2+ Updated by Martha Saeed, RT (R) on 04/30/2017 3:23:39 PM electronically signed on 04/30/2017 3:24:12 PM with status of Final
--- NOTE | 2017-04-30 16:33 | Electrocardiograph Report ---
[address] [place] [address] Test Date: 2017-04-29 Pat Name: Carl Jack Department: 102 Room: 3B Gender: M Revenue Cycle Administrator: Lucius : 1970 Requested By: Mich Sanchez Order Number: [id number] Reading MD: Ana Noe Measurements Intervals [place] Rate: 125 P: 78 MT: 137 QRS: 81 QRSD: 88 T: 69 QT: 326 QTc: 400 Interpretive Statements SINUS TACHYCARDIA ANTEROSEPTAL MYOCARDIAL INFARCTION OF INDETERMINATE AGE Electronically Signed On 04-30-2017 16:31:48 EDT by Ana Noe
--- NOTE | 2017-04-30 18:05 | Discharge Summary ---
Date of Encounter: 04/30/17 Time of Encounter: 17:30 - Discharge Diagnosis (1) Chest pain Priority: Primary Status: Resolved Comments: Patient denied chest pain at time of discharge. Left heart catheter unremarkable without intervention. Qualifiers: Chest pain type: unspecified Qualified Code(s): R07.9 - Chest pain, unspecified (2) Unstable angina Priority: Primary Status: Suspected (3) Accelerated hypertension Priority: Primary Status: Resolved (4) Other social stressor Priority: Primary Status: Acute Comments: Patient's girlfriend of 30 years broke up with him and he had not eaten or drank or taken any of his meds for 3 days prior to presentation. He states he has strong social support and denied suicidal or homicidal ideation (5) Pulmonary nodule Priority: Primary Status: Acute Comments: Follow-up outpatient (6) Hypertension Priority: Secondary Status: Chronic Comments: Controlled at time of discharge with resumption of his home medications. Follow -up outpatient Qualifiers: Hypertension type: essential hypertension Qualified Code(s): I10 - Essential (primary) hypertension (7) DVT prophylaxis Priority: Primary Status: Acute Comments: Observation patient. Up ad manda. (8) CAD (coronary artery disease) Priority: Secondary Status: Chronic (9) [place] (acute kidney injury) Priority: Primary Status: Resolved - Discharge Medications Home Medications: Aspirin Enteric Coated [Aspirin EC] 81 mg PO DAILY 04/29/17 [History] Atorvastatin Calcium [Lipitor] 80 mg PO HS 04/29/17 [History] Carvedilol 3.125 mg PO BID 04/29/17 [History] Citalopram [CeleXA] 10 mg PO DAILY 04/29/17 [History] Clopidogrel [Plavix] 75 mg PO DAILY 04/29/17 [History] Lisinopril [Zestril] 20 mg PO DAILY 04/29/17 [History] Naproxen Sodium [Naproxen Sodium Cr] 500 mg PO BID PRN 04/29/17 [History] Ondansetron [Zofran] 8 mg PO Q8HR PRN 04/29/17 [History] Pantoprazole Sodium [Protonix] 40 mg PO DAILY 04/29/17 [History] Ranolazine [Ranexa] 500 mg PO BID 04/29/17 [History] Triamterene/HCTZ 37.5/25mg [Dyazide] 1 each PO DAILY 04/29/17 [History] Albuterol Sulfate [Ventolin Hfa] 1 puff IH PRN PRN 04/30/17 [History] Allergies/Adverse Reactions: Allergies No Known Allergies Allergy (Verified 04/29/17 16:05) Procedures/tests Complete & Pending: Procedures Performed prior 72 hours Category Date Time Status CT chest w/o contrast [CT chest wo con] [CT] Routine Cat Scan 04/29/17 20:50 Draft CL Cardiac Catheterization [CL] 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 04/30/17 11:14 Ordered ECG 12 lead ECG [ECG] Stat Y 04/29/17 19:09 Ordered Date of admission: 04/29/17 18:10 Primary care physician: PCP NO Consults: 04/29/17 19:19 Consult to Cardiology [CONS] Routine Comment: Consulting Provider: Tk Valentine Reason for Consult: Chest pain for past 2-3 weeks with hx of NE Call Completed: No Discharging clinician: Paula Pires Anticipated date of discharge: 04/30/17 - Patient Status Disposition: Home, Self-Care Condition: Fair Functional capacity at discharge: independent ambulation Overall status at discharge: patient is back to baseline - Discharge Instructions Follow Up With: Cardiology Meme [Provider Group] Residency, Clinic [Other] Additional Instructions: Follow-up with your new primary care provider within one to 2 weeks, follow-up with cardiology in 2-3 weeks RISK FACTORS: STOP SMOKING: If you smoke, STOP. Smoking or tobacco use significantly increases your risk of heart disease because nicotine causes the arteries to narrow or constrict. It also causes fats to stick to the artery. Your chances of having a heart attack are greatly increased if you continue to smoke. For more information, call the education line for smoking cessation 6-776-RMCFZOV EAT A LOW FAT/CHOLESTEROL/SODIUM DIET: This diet may help reduce your chances of having a heart attack. LIFTING: With affected extremity: Avoid bending, pushing off and lifting more than 2 pounds for 24 hours The following 48 hours, avoid lifting anything more than 5 pounds Avoid strenuous activity or repetitive motions ACTIVITY: You may walk or climb stairs as tolerated You can resume sexual activity as tolerated In general, you are encouraged to engage in a minimum of 30 minutes or more of moderate intensity physical activity, such as brisk walking, daily or at least 3 -4 times weekly BATHING Do not submerge the site into water (bath tub, hot tub, swimming pool, dishes) for 1 week. This can be a source for infection into the blood stream. You may shower after 24 hours SITE CARE: After 24 hours, you may remove the dressing and leave the site open to air. Keep the site clean and dry. Clean gently and pat dry. You can expect bruising and tenderness that gradually resolve within a week or two. Return to work as instructed per your physician Resume driving as instructed per physician Keep all scheduled follow up appointments Resume medications as instructed IMPORTANT: If prescribed a Platelet Aggregation Inhibitor such as, Plavix, Brilinta or Effient: Duration of therapy is minimum one year These medications are often used in combination with Aspirin in prevention of future heart attacks Never discontinue unless consult with your Director And Professor STROKE (CVA) Risk factors for a stroke are: Age, cigarette smoking, diabetes, excessive alcohol consumption, family history, high blood pressure, overweight, physical inactivity, prior stroke, heart attack, diagnosis of carotid artery stenosis or other artery disease. Warning signs: Sudden numbness or weakness of the face, arm or leg; especially on one side of the body, sudden confusion, trouble speaking or understanding, sudden trouble seeing in one or both eyes, sudden trouble walking, dizziness, loss of balance or coordination, sudden severe headache with no cause. Call 911 or go to the Emergency Room. CONGESTIVE HEART FAILURE: If you have been diagnosed with Congestive Heart Failure (CHF) and your symptoms return, make an appointment with your physician Weigh yourself daily. Notify your physician if you have a weight gain of two or more pounds in one day or five or more pounds in one week. If you experience any difficulty breathing, please call 911 BLEEDING: Although the risk of bleeding is minimal, it can happen. If you have any bleeding from the site, apply firm pressure above the puncture site for 10-15 minutes. If the bleeding does not stop, continue manual pressure and call 911 Contact [facility] ( ) if: You develop a fever greater than 101 degrees Fahrenheit Your site becomes reddened or has any drainage You have an increase in pain or burning at the site or if a large knot forms at the site. If you experience chest pain, shortness of breath, dizziness, or extreme tiredness, stop the activity and rest. Please notify [facility] office if you experience any of these symptoms and they are not relieved by rest please call 911! - Diet and Activity Activity: increase activity as tolerated, return to work once cleared by your PCP/specialist (per post [facility] guidelines) Diet: low fat, low cholesterol, low salt diet Hospital course: Mr. Jack is a 46 year old male with past medical history of CAD status post stent, hypertension, NE in November 2015, 1 pack per day smoker, marijuana abuse , anxiety. Patient presented to the emergency department chief complaint of left-sided chest pain with radiation to his left shoulder that was worsened with inspiration. Patient stating it was intermittent over the past 2-3 weeks prior to presentation. On the day of presentation, his chest pain lasted 3 hours and occurred while he was walking and exerting himself. Patient also endorsed diaphoresis. He denied nausea, vomiting, dyspnea, or diarrhea. He also denied cough, fever. He claims that he had a stress test 3 weeks prior to presentation at [facility] that he states was abnormal. Also of note, he states that his girlfriend of 30 years broke up with him 3 days prior to presentation. Patient stated that he had not eaten, drank anything, or taken any of his medicines on the 3 days prior to presentation. He was markedly hyper-tensive upon arrival-presenting blood pressure 194/116. Chest x-ray in the emergency department revealing a pulmonary nodule. Subsequent chest CT revealing a 7 mm right upper lobe nodule as well as scarring, emphysema, and calcified granulomas. Recommend follow-up CT in 6-12 months. Patient was admitted to the hospitalist service for further evaluation and management. Initial troponin was negative however repeat troponins positive at 0.042. Cardiology was brought on board who were concerned for possible unstable angina and the patient was taken for left heart catheter. Official report is pending at time of discharge however verbal report indicates and unremarkable heart catheter without interventions indicated. Patient was normotensive with the resumption of his regular home medications. No adjustment was indicated for his home medications. He stated he had medications at home, he just did not take them so no refills were given at time of discharge. Patient denied chest pain or shortness of breath at time of discharge. He was discharged home in stable condition with close outpatient follow-up recommended. ITS Impressions Chest X-Ray 04/29/17 16:04 IMPRESSION: 7 mm nodule is seen at the right upper lobe and there is asymmetric right apical pleuroparenchymal thickening. While pneumonitis or scarring are most common, malignancy cannot be excluded in the appropriate clinical setting. Radiographic Follow-up to resolution is recommended. If this does not resolve, chest CT would be suggested for further characterization. D/ / Villa Morales MD / Villa Morales MD Interpreting Provider: Villa Morales MD Chest CT 04/29/17 20:50 IMPRESSION: 1. Right apical bullous change with scattered areas of fibronodular scarring. 2. Minimal left apical paraseptal emphysematous changes. 3. Right lung calcified granulomas. 4. 7 mm right upper lobe nodule. CT follow-up as below. RECOMMENDATIONS: Fleischner Society guidelines for follow-up and management of incidentally detected pulmonary nodules: Single Solid Nodule: Nodule size less than 6 mm In a low-risk patient, no routine follow-up. In a high-risk patient, optional CT at 12 months. Nodule size equals 6-8 mm In a low-risk patient, CT at 6-12 months, then consider CT at 18-24 months. In a high-risk patient, CT at 6-12 months, then CT at 18-24 months. Nodule size greater than 8 mm In a low-risk patient, consider CT, PET/CT, or tissue sampling at 3 months. In a high-risk patient, consider CT, PET/CT, or tissue sampling at 3 months. Multiple Solid Nodules: Nodule size less than 6 mm In a low-risk patient, no routine follow-up. In a high-risk patient, optional CT at 12 months. Nodule size equals 6-8 mm In a low-risk patient, CT at 3-6 months, then consider CT at 18-24 months. In a high-risk patient, CT at 3-6 months, then CT at 18-24 months. Nodule size greater than 8 mm In a low-risk patient, CT at 3-6 months, then consider CT at 18-24 months. In a high-risk patient, CT at 3-6 months, then CT at 18-24 months. - Low risk patients include individuals with minimal or absent history of smoking and other known risk factors. - High risk patients include individuals with a history or smoking or known risk factors. Radiology 2017 http://pubs.rsna.org/doi/full/10.1148/radiol.[email or web address] D/ / 04/30/2017 07:49:33 Ryan Jones MD / khari Interpreting Provider: Ryan Jones MD - Time Spent with Patient Total time spent providing and/or coordinating discharge services: - Constitutional Vitals: Temp Pulse Resp BP Pulse Ox 98.1 F 72 18 127/83 100 04/30/17 17:16 04/30/17 17:16 04/30/17 17:16 04/30/17 17:16 04/30/17 17:16 General appearance: Present: cooperative, A&O X 3, pleasant, no acute distress, answers questions appropriately - Head Head exam: Present: atraumatic, normocephalic - Eye Eye exam: Present: PERRL, conjuntiva pink, sclera anicteric Pupils: Present: PERRL - Neck Neck exam general surgery: Present: supple, trachea midline. Absent: lymphadenopathy - Respiratory Respiratory exam: Present: CTAB. Absent: accessory muscle use, rales, respiratory distress, rhonchi, wheezes - Cardiovascular Cardiovascular exam: Present: RRR, +S1, +S2. Absent: diastolic murmur, gallop, rubs, systolic murmur - GI/Abdominal GI/Abdominal exam: Present: normal bowel sounds, soft, no peritoneal signs. Absent: distended, tenderness - Extremities Exam Extremities exam: Present: warm, radial pulses palpable and symetrical. Absent : calf tenderness, cyanotic, pedal edema - Neurological Exam Neurological exam: Present: alert, CN II-XII intact, normal gait, oriented X3, no focal deficits, strengths equal and symetr throughout. Absent: pronater drift, facial droop, speech deficit - Skin Skin exam: Present: dry, intact, normal color, warm
[2017-04-30 18:24] VITALS: BP 138/74
--- NOTE | 2017-05-01 08:22 | Invasive Diagnostic Lab ---
Name: Carl Jack Date of Study: 04/30/2017 Date: 1970 Ht: 180.0 cm /70.9 in Medical Record#: [id number] Age: 46 Wt: 74. kg / 163.14 lb Account/Order#: [id number] Gender: Male BSA: 1.93 Order #: [id number] Fluoro Dose: 97 mGy BMI: 22.84 Procedure Physician: Oswaldo Mancilla MD, FACC Referring MD: Referring MD: Procedures Performed: LEFT HEART CATH IV Doppler BLD Flow 1st Vessel Indications: Unstable Angina Impressions: There is moderate one vessel coronary artery disease. The left ventricle has normal contractility EF 65% Recommendations: Optimal medical therapy of patient's disease. Aggressive risk factor modification. History/Risk Factors: CKD chest pain Hypertension Prior TX Previous PCI Procedure Access obtained in the right Radial artery by percutaneous puncture Complications: None, None Contrast: Isovue 68ml Hemodynamics: Pressures Site Systolic/ A Wave Diastolic/ V Wave End Diastolic/ Mean HR LV 78 2 6 96 LV 76 4 3 63 AO 85 24 52 95 AO 94 82 88 91 AO 101 84 93 84 LV Ventriculography Ejection Method: LV Gram Ejection Fraction: 65% Wall Motion: IVY Anterobasal Normal Anterolateral Mild Hypokinesis Apical: Normal Inferoapical Normal Inferobasal Normal Coronary Dominance: right Lesion Findings/Interventions * Left Main Coronary Artery The LMCA is angiographically free of disease. * Left Anterior Descending The LAD has proximal and mid 215% stenosis The 1st Diagonal is angiographically free of disease. The Left Anterior Descending has patent stents present from a previous procedure. * Circumflex There is a 20% stenosis in the Mid Circumflex. * Right Coronary Artery There is a 60% stenosis in the Proximal RCA. Updated by Martha Saeed, RT (R) on 04/30/2017 3:23:08 PM Oswaldo Mancilla MD, FACC electronically signed on 05/01/2017 8:16:24 AM with status of Final
== END 2017-04-30 18:40 | disposition home or self-care (01) ==
LOC: EMEROO 15:57 → 3BNU 15:57
PROVIDERS: ADMIT Hospitalist; ATTEND Nurse Practitioner Family

== ENCOUNTER 2018-08-05 03:17 | Observation (INO) ==
[2018-08-05] MEDS ORDERED: Nitroglycerin 0.4 MG TAB.SUBL SL ONE (03:26)
--- NOTE | 2018-08-05 03:27 | Emergency Department Note ---
Disposition Clinical Impression: Methamphetamine abuse, QT prolongation Chest pain Qualifiers: Chest pain type: unspecified Qualified Code(s): R07.9 - Chest pain, unspecified Disposition: Admitted As Inpatient Condition: Fair Time of Disposition: 06:50 General Adult HPI - General Stated complaint: chest pain Time Seen by Provider: 08/05/18 03:26 Source: patient, EMS Mode of arrival: EMS Limitations: no limitations Nursing Notes Reviewed: Yes Vital Signs Reviewed: Yes - History of Present Illness HPI Narrative: Patient is a 48-year-old male with past medical history of one cardiac stent presents immersed department for sudden onset of crushing substernal chest pain associated with diaphoresis and dyspnea that started approximately 1 hour prior to arrival, however the patient states he has been having a dull chest pain over the past 2 days. Patient states this evening he is watching TV when the chest pain came on. States feels similar to when he has had to have a stent placed in the past. Received a full dose aspirin and squad. - Related Data Home Medications Medication Instructions Recorded Confirmed Aspirin Enteric Coated [Aspirin EC] 81 mg PO DAILY 04/29/17 04/30/17 Atorvastatin Calcium [Lipitor] 80 mg PO HS 04/29/17 04/30/17 Carvedilol 3.125 mg PO BID 04/29/17 04/30/17 Citalopram [CeleXA] 10 mg PO DAILY 04/29/17 04/30/17 Clopidogrel [Plavix] 75 mg PO DAILY 04/29/17 04/30/17 Lisinopril [Zestril] 20 mg PO DAILY 04/29/17 04/30/17 Naproxen Sodium [Naproxen Sodium 500 mg PO BID PRN 04/29/17 04/30/17 Cr] Ondansetron [Zofran] 8 mg PO Q8HR PRN 04/29/17 04/30/17 Pantoprazole Sodium [Protonix] 40 mg PO DAILY 04/29/17 04/30/17 Ranolazine [Ranexa] 500 mg PO BID 04/29/17 04/30/17 Triamterene/HCTZ 37.5/25mg 1 each PO DAILY 04/29/17 04/30/17 [Dyazide] Albuterol Sulfate [Ventolin Hfa] 1 puff IH PRN PRN 04/30/17 04/30/17 Allergies Allergy/AdvReac Type Severity Reaction Status Date / Time No Known Allergies Allergy Verified 04/29/17 16:05 All systems ED: reviewed and negative except as stated. Review of Systems: As Per HPI Constitutional: Denies: fever, chills Cardiovascular: Reports: chest pain. Denies: palpitations, dyspnea on exertion , syncope Respiratory: Reports: dyspnea. Denies: cough, wheezes Gastrointestinal: Denies: nausea Past Medical History - Past Medical History Attestation: Yes The following information was validated with the patient. Medical history: Reports: coronary artery disease, hypertension, myocardial infarction (November 2015) Surgical history: Reports: angioplasty/stent, appendectomy, other Psychiatric history: Reports: anxiety - Social History Smoking Status: Current every day smoker Smokeless Tobacco Status: No Alcohol use: Reports: none Drug use: Reports: marijuana Physical Exam CONSTITUTIONAL: A&O X 3. Patient is clammy on exam. HEAD: Normocephalic; atraumatic EYES: PERRL, no scleral icterus NOSE: The nose is normal in appearance without rhinorrhea NECK: No JVD or distended neck veins RESP: Normal chest excursion with respiration; breath sounds clear and equal bilaterally; no wheezes, rhonchi, or rales CARD: Tachycardic. Regular rhythm, without murmurs, rub or gallop ABD: Non-distended; non-tender, soft, without rigidity, rebound or guarding,no pulsatile mass CHEST: No pain with palpation SKIN: Normal for age and race; warm and dry without diaphoresis ; no apparent lesions EXTREMITIES: Pulses are 2 plus and equal times 4 extremities, no peripheral edema or calf muscle pain Course Course Narrative: Patient presents for chest pain concerning for ACS. Initial EKG is nonischemic. Patient underwent workup for ACS. A repeat EKG was performed due to the patient's continuing chest pain showed an widening of his QT S2 5 146 of from 450 65. At that time the patient was given 2 g of magnesium IV. Also discussed with the patient if he has had any drug use and he admitted to methamphetamine use. Is also given 1 mg of Ativan which states his pain is improving with that medication. Discussed the patient's case with the hospitalist on-call and they agree to accept the patient for his chest pain. It does not appear that the patient had a heart catheterization done 1 year ago which showed that he still had a patent stent and required no further stenting at that time. Vital Signs Temperature 99.8 F H 08/05/18 03:44 Pulse Rate 108 08/05/18 03:44 Respiratory Rate 20 08/05/18 03:44 Blood Pressure 168/107 08/05/18 03:44 O2 Sat by Pulse Oximetry 100 08/05/18 03:44 Temperature 99.8 F H 08/05/18 03:44 Pulse Rate 108 08/05/18 03:44 Respiratory Rate 20 08/05/18 03:44 Blood Pressure 168/107 08/05/18 03:44 O2 Sat by Pulse Oximetry 100 08/05/18 03:44 Oxygen Delivery Oxygen Delivery Room Air Medical Decision Making - Medical Records Medical records reviewed: Yes I reviewed the patient's medical records. - Lab Data Lab results reviewed: Yes I reviewed the patient's lab results. Result diagrams: 08/05/18 04:00 08/05/18 04:00 Lab Results 08/05/18 08/05/18 Range/Units 04:00 04:00 WBC 14.6 H (4.3-11.1) K/mcL RBC 5.13 (4.19-5.50) M/mcL Hgb 14.4 (12.9-16.9) g/dL Hct 43.2 (37.5-50.1) % MCV 84.2 (83.0-100.0) fL MCH 28.1 (28.0-33.3) pg MCHC 33.3 (31.6-35.5) g/dL RDW 14.1 (11.5-14.5) % Plt Count 344 (140-400) K/mcL MPV 9.2 L (9.4-12.4) fL Immature Gran % 0.3 (0-4) % Seg Neutrophils % 69.2 % Lymphocytes % 15.6 % Monocytes % 9.1 % Eosinophils % 5.3 % Basophils % 0.5 % Neutrophils # 10.1 H (1.6-8.9) K/mcL Lymphocytes # 2.3 (0.6-4.6) K/mcL Monocytes # 1.3 (0.0-1.3) K/mcL Eosinophils # 0.8 H (0.0-0.6) K/mcL Basophils # 0.1 (0.0-0.2) K/mcL Sodium 138 (136-145) mEq/L Potassium 3.9 (3.5-5.1) mEq/L Chloride 107 (98-107) mEq/L Carbon Dioxide 22 L (23-29) mEq/L BUN 21 H (6-20) mg/dL Creatinine 1.47 H (0.70-1.30) mg/dL Est GFR ( Amer) > 60 (> 60) Est GFR (Non-Af Amer) 51 L (> 60) BUN/Creatinine Ratio 14 (6-26) Glucose 92 (70-105) mg/dL Calculated Osmolality 289 (280-300) Calcium 10.2 (8.6-10.3) mg/dL Troponin I 0.03 (< 0.04) ng/mL Salicylates < 2.5 L (15.0-30.0) mg/dL Acetaminophen < 10 L (10-20) mcg/mL - Radiology Data Radiology results reviewed: Yes I reviewed the patient's radiology results. Chest X-Ray 08/05/18 03:26 IMPRESSION: No acute findings. D/ / Ryan Atkins / Ryan Atkins Interpreting Provider: Ryan Atkins - EKG Data EKG #1 EKG attestation: Yes I reviewed and interpreted this EKG. EKG results narrative: EKG done at its 3:21 shows sinus tachycardia at a rate of 100 bpm. Normal axis. Intervals within normal limits. No signs of ST elevation, depression or Q waves present. EKG #2 EKG attestation: Yes I reviewed and interpreted this EKG. EKG results narrative: Repeat EKG done at 3:53 shows sinus rhythm at a rate of 99 bpm. No signs of ischemia when compared to old EKG done at 3:21. Patient does have QTC prolongation at 546.
[2018-08-05] MEDS ORDERED: *HR* LORazepam 2 MG/ML VIAL IVP ONE (04:12)
[2018-08-05 04:14] LABS: Basophils # 0.1 K/mcL (0.0-0.2); Basophils % 0.5 %; Eosinophils # 0.8 K/mcL (0.0-0.6); Eosinophils % 5.3 %; Hematocrit 43.2 % (37.5-50.1); Hemoglobin 14.4 g/dL (12.9-16.9); Immature Granulocytes % 0.3 % (0-4); Lymphocytes # 2.3 K/mcL (0.6-4.6); Lymphocytes % 15.6 %; Mean Corpuscular HGB Conc 33.3 g/dL (31.6-35.5); Mean Corpuscular Hemoglobin 28.1 pg (28.0-33.3); Mean Corpuscular Volume 84.2 fL (83.0-100.0); Mean Platelet Volume 9.2 fL (9.4-12.4); Monocytes # 1.3 K/mcL (0.0-1.3); Monocytes % 9.1 %; Neutrophils # 10.1 K/mcL (1.6-8.9); Platelet Count 344 K/mcL (140-400); Red Blood Count 5.13 M/mcL (4.19-5.50); Red Cell Distribution Width 14.1 % (11.5-14.5); Segmented Neutrophils % 69.2 %
[2018-08-05 04:31] LABS: BUN/Creatinine Ratio 14 (6-26); Blood Urea Nitrogen 21 mg/dL (6-20); Calcium 10.2 mg/dL (8.6-10.3); Carbon Dioxide 22 mEq/L (23-29); Chloride 107 mEq/L (98-107); Glucose 92 mg/dL (70-105); Osmolality,Calculated 289 (280-300); Potassium 3.9 mEq/L (3.5-5.1); Sodium 138 mEq/L (136-145); Troponin I 0.03 ng/mL (< 0.04); eGFR For Non-African Americans 51 (> 60)
[2018-08-05 06:10] LABS: Acetaminophen < 10 mcg/mL (10-20); Salicylate < 2.5 mg/dL (15.0-30.0)
[2018-08-05 07:08] LABS: Ethanol < 10 mg/dL (Less than 10)
[2018-08-05] MEDS ORDERED: Naloxone 0.4 MG/ML INJ IVP PRN (08:09)
[2018-08-05] MEDS ORDERED: Ringers Solution, Lactated 1,000 ML IVC SCH (08:15)
[2018-08-05 09:09] LABS: Chol/HDL Ratio 2.7 (0-4.9); Cholesterol 126 mg/dL (< 200); HDL Cholesterol 46 mg/dL (40-59); LDL Cholesterol,Calculated 70 mg/dL (0-99); Triglycerides 52 mg/dL (< 150)
--- NOTE | 2018-08-05 09:23 | Internal Med History&Physical ---
Date of Encounter: 08/05/18 Time of Encounter: 09:22 Internal Medicine - H&P: HPI Chief complaint: chest pain Admitted From: Home Plans for Post Hospital Care: Home History of present illness: Mr. Jack is a 48 year old male with a past medical history of [place] s/p PCI [address] [facility], HTN, and CKD who presented with chest pain. He reports substernal chest pain radiating to his left neck and dyspnea, he reported associateed diaphoresis . Chest pain is said to have been ongoing for the past 2 days but was severe enough to bring him to the ER. He was watching TV when the chest pain started this mrn, no known relieving or aggravating factors He denies associated n/v/dizziness. He reports having done illicit drugs prior to onset of pain Compliance with his home meds is questionable He is very un-cooperative during my evaluation and refuses to give further history, he also continues to fall back asleep He was tachycardic and blood pressure was uncontrolled on presentation Due to QTC prolongation on EKG, he also received Benzodiazepine and Magnessium in the ER Other ROS unobtainable due to patient constantly falling asleep and refusing to answer questions Past Med Surg Social Fam HX - Past Medical History Medical history: coronary artery disease, hypertension, myocardial infarction ( November 2015) Psychiatric history: anxiety - Past Surgical History Surgical History: angioplasty/stent, appendectomy, other Additional surgical history: tonsillectomy - Social History Smoking Status: Current every day smoker Smokeless Tobacco Status: No Alcohol use: none Drug use: marijuana - Family History Mother Family Member Ethnicity: Non- Living Status: Still Living Hx Family Cardiac Disorders: Yes (HTN) Hx Family Endocrine Disorder: Yes (DM) Father Family Member Ethnicity: Non- Living Status: Still Living Hx Family Cardiac Disorders: Yes (HTN) Sister Family Member Ethnicity: Non- Living Status: Still Living Internal Medicine - H&P: Meds Aspirin Enteric Coated [Aspirin EC] 81 mg PO DAILY 04/29/17 [History] Atorvastatin Calcium [Lipitor] 80 mg PO HS 04/29/17 [History] Carvedilol 3.125 mg PO BID 04/29/17 [History] Citalopram [CeleXA] 10 mg PO DAILY 04/29/17 [History] Clopidogrel [Plavix] 75 mg PO DAILY 04/29/17 [History] Lisinopril [Zestril] 20 mg PO DAILY 04/29/17 [History] Naproxen Sodium [Naproxen Sodium Cr] 500 mg PO BID PRN 04/29/17 [History] Ondansetron [Zofran] 8 mg PO Q8HR PRN 04/29/17 [History] Pantoprazole Sodium [Protonix] 40 mg PO DAILY 04/29/17 [History] Ranolazine [Ranexa] 500 mg PO BID 04/29/17 [History] Triamterene/HCTZ 37.5/25mg [Dyazide] 1 each PO DAILY 04/29/17 [History] Albuterol Sulfate [Ventolin Hfa] 1 puff IH PRN PRN 04/30/17 [History] 3 Allergy/AdvReac Type Severity Reaction Status Date / Time No Known Allergies Allergy Verified 04/29/17 16:05 All Systems PM: A 10-system review of systems was performed and is negative for pertinent findings except as documented above in the HPI. - Constitutional Constitutional: no chills, no fever(s), no night sweats - EENT Eyes: no change in vision, no discharge, no pain, no photophobia Ears: no ear discharge, no ear pain, no tinnitus Nose, mouth and throat: no dysphagia, no nasal discharge, no neck pain, no sore throat - Cardiovascular Cardiovascular ROS IM: chest pain, dyspnea, no diaphoresis, no lightheadedness, no palpitations, no syncope - Respiratory Respiratory: no cough, no dyspnea, no wheezing, no excessive phlegm production - Gastrointestinal Gastrointestinal: no abdominal pain, no diarrhea, no hematemesis, no hematochezia, no melena, no nausea, no vomiting - Musculoskeletal Musculoskeletal ROS IM: no numbness, no tingling - Integumentary Integumentary IM: no rash, no unusual bruising - Neurological Neurological ROS: no confusion, no convulsions, no focal weakness, no numbness, no tingling, no tremor(s) - Hematologic/Lymphatic Hematologic/Lymphatic: no easy bruising - Constitutional Vitals: Temp Pulse Resp BP Pulse Ox 99 F 98 16 159/90 100 08/05/18 07:06 08/05/18 07:06 08/05/18 07:06 08/05/18 07:06 08/05/18 07:06 General appearance: Present: A&O X 3 (sleeping, but rousable) Exam: see detailed exam below - Head Head exam: Present: atraumatic, normocephalic - Eye Eye exam: Present: PERRL, conjuntiva pink, sclera anicteric Pupils: Present: PERRL - Neck Neck exam general surgery: Present: supple, trachea midline. Absent: lymphadenopathy - Respiratory Respiratory exam: Present: CTAB. Absent: accessory muscle use, rales, rhonchi, wheezes - Cardiovascular Cardiovascular exam: Present: RRR, +S1, +S2. Absent: diastolic murmur, gallop, rubs, systolic murmur - GI/Abdominal GI/Abdominal exam: Present: normal bowel sounds, soft, no peritoneal signs. Absent: distended, tenderness - Extremities Exam Extremities exam: Present: warm, radial pulses palpable and symmetrical. Absent : calf tenderness, cyanotic, pedal edema - Neurological Exam Neurological exam: Present: CN II-XII intact, oriented X3, no focal deficits. Absent: pronater drift, facial droop, speech deficit - Skin Skin exam: Present: dry, intact Internal Med - H&P Results - Labs CBC & Chem 7: 08/05/18 04:00 08/05/18 04:00 - Assessment and plan (1) [place] (acute kidney injury) Current Visit: Yes Status: Acute Assessment and plan: Likely pre-renal due to poor oral intake Continue IVF hydration (2) CAD (coronary artery disease) Current Visit: Yes Status: Chronic Assessment and plan: Left heart cath done 04/30/2017 showed moderate one vessel CAD with normal EF stent was patent in LAD, 60% stenosis in proximal RCA Patient with questionable complaince and drug abuse Cycle troponins Obtain ECHO Cardiology will be consulted if any abnormality on ECHO or elevated trop Continue ASA, Lipitor, BB Qualifiers: Coronary Disease-Associated Artery/Lesion type: [place] artery [place] vs. transplanted heart: [place] heart Associated angina: with unspecified angina Qualified Code(s): I25.119 - Atherosclerotic heart disease of [place] coronary artery with unspecified angina pectoris (3) Chest pain Current Visit: Yes Status: Acute Assessment and plan: see CAD above Qualifiers: Chest pain type: unspecified Qualified Code(s): R07.9 - Chest pain, unspecified (4) DVT prophylaxis Current Visit: Yes Status: Acute Assessment and plan: SQ heparin (5) Hypertension Current Visit: Yes Status: Chronic Assessment and plan: continue home meds Qualifiers: Hypertension type: essential hypertension Qualified Code(s): I10 - Essential (primary) hypertension (6) Methamphetamine abuse Current Visit: Yes Status: Acute Assessment and plan: encourage cessation Obtain Utox (7) QT prolongation Current Visit: Yes Status: Acute Assessment and plan: Admitting Qtc 546 Received one dose of Mag in ER Repeat EKG with QTc 465 Patient on multiple psych meds, and abuses meth Hold meds for now Continue tele Repeat EKG a.m - Time Spent With Patient Total time spent is greater than 50% in coordination of care (as documented) at patient's floor/unit and/or counseling patient:
[2018-08-05] MEDS: Lisinopril 20 MG TABLET PO SCH (12:34)
[2018-08-05] MEDS: Aspirin Enteric Coated 81 MG Tablet PO SCH (12:34)
[2018-08-05 18:39] LABS: Amphetamine Screen,Urine Positive ng/mL (Cutoff=1000); Barbiturate Screen,Urine Negative ng/mL (Cutoff=200); Benzodiazepines Screen,Urine Negative ng/mL (Cutoff=200); Cannabinoid Screen,Urine Negative ng/mL (Cutoff = 50); Cocaine Screen,Urine Positive ng/mL (Cutoff= 300); Opiate Screen,Urine Negative ng/mL (Cutoff=300); Phencyclidine Screen,Urine Negative ng/mL (Cutoff=25)
[2018-08-05] MEDS ORDERED: Acetaminophen 325 MG TABLET PO PRN (20:17)
[2018-08-05] MEDS: traMADol 50 MG TABLET PO PRN (21:08)
[2018-08-06 07:08] LABS: Basophils # 0.1 K/mcL (0.0-0.2); Basophils % 0.4 %; Eosinophils # 1.2 K/mcL (0.0-0.6); Eosinophils % 10.1 %; Hematocrit 38.3 % (37.5-50.1); Immature Granulocytes % 0.4 % (0-4); Lymphocytes # 2.4 K/mcL (0.6-4.6); Mean Corpuscular HGB Conc 32.6 g/dL (31.6-35.5); Mean Corpuscular Hemoglobin 28.3 pg (28.0-33.3); Mean Corpuscular Volume 86.8 fL (83.0-100.0); Monocytes # 1.5 K/mcL (0.0-1.3); Monocytes % 13.1 %; Neutrophils # 6.3 K/mcL (1.6-8.9); Platelet Count 251 K/mcL (140-400); Red Blood Count 4.41 M/mcL (4.19-5.50); Red Cell Distribution Width 14.1 % (11.5-14.5)
[2018-08-06 07:26] LABS: BUN/Creatinine Ratio 15 (6-26); Blood Urea Nitrogen 19 mg/dL (6-20); Calcium 8.9 mg/dL (8.6-10.3); Carbon Dioxide 23 mEq/L (23-29); Chloride 107 mEq/L (98-107); Glucose 98 mg/dL (70-105); Osmolality,Calculated 286 (280-300); Potassium 4.3 mEq/L (3.5-5.1); Sodium 137 mEq/L (136-145); eGFR For Non-African Americans 59 (> 60)
[2018-08-06 07:34] LABS: Hemoglobin 12.5 g/dL (12.9-16.9)
[2018-08-06 07:48] VITALS: BP 146/90
[2018-08-06] MEDS: Lisinopril 20 MG TABLET PO SCH (09:57)
[2018-08-06] MEDS: Aspirin Enteric Coated 81 MG Tablet PO SCH (09:57)
[2018-08-06] MEDS: traMADol 50 MG TABLET PO PRN (10:00)
--- NOTE | 2018-08-06 12:47 | Discharge Summary ---
Date of Encounter: 08/06/18 Time of Encounter: 12:45 - Discharge Diagnosis (1) Chest pain Priority: Primary Status: Resolved Qualifiers: Chest pain type: unspecified Qualified Code(s): R07.9 - Chest pain, unspecified (2) [place] (acute kidney injury) Priority: Primary Status: Acute (3) Substance abuse Priority: Secondary Status: Acute Assessment and Plan: UDS positive for cocaine. Pt admits to using "coke" but states he quit years ago. (4) Methamphetamine abuse Priority: Secondary Status: Acute Hospital course: Mr. Jack is a 48 year old male admitted for management of ACS rule out and [place]. Pt refused to stay to complete workup and left against medical advise. Discharge discussed with: patient - Time Spent with Patient Total time spent providing and/or coordinating discharge services: Less than 30 minutes - Discharge Medications Home Medications: Aspirin Enteric Coated [Aspirin EC] 81 mg PO DAILY 04/29/17 [History] Atorvastatin Calcium [Lipitor] 80 mg PO HS 04/29/17 [History] Carvedilol 3.125 mg PO BID 04/29/17 [History] Citalopram [CeleXA] 10 mg PO DAILY 04/29/17 [History] Clopidogrel [Plavix] 75 mg PO DAILY 04/29/17 [History] Lisinopril [Zestril] 20 mg PO DAILY 04/29/17 [History] Naproxen Sodium [Naproxen Sodium Cr] 500 mg PO BID PRN 04/29/17 [History] Ondansetron [Zofran] 8 mg PO Q8HR PRN 04/29/17 [History] Pantoprazole Sodium [Protonix] 40 mg PO DAILY 04/29/17 [History] Ranolazine [Ranexa] 500 mg PO BID 04/29/17 [History] Triamterene/HCTZ 37.5/25mg [Dyazide] 1 each PO DAILY 04/29/17 [History] Albuterol Sulfate [Ventolin Hfa] 1 puff IH PRN PRN 04/30/17 [History] Allergies/Adverse Reactions: 3 Allergy/AdvReac Type Severity Reaction Status Date / Time No Known Allergies Allergy Verified 04/29/17 16:05 Date of admission: 08/05/18 05:32 Primary care physician: PCP NONE - Constitutional Vitals: Temp Pulse Resp BP Pulse Ox 98.2 F 96 16 146/90 99 08/06/18 07:47 08/06/18 07:47 08/06/18 07:47 08/06/18 07:47 08/06/18 07:47 General appearance: Present: A&O X 3 (sleeping, but rousable) Exam: see detailed exam below - Head Head exam: Present: atraumatic, normocephalic - Eye Eye exam: Present: PERRL, conjuntiva pink, sclera anicteric Pupils: Present: PERRL - Neck Neck exam general surgery: Present: supple, trachea midline. Absent: lymphadenopathy - Respiratory Respiratory exam: Present: CTAB. Absent: accessory muscle use, rales, rhonchi, wheezes - Cardiovascular Cardiovascular exam: Present: RRR, +S1, +S2. Absent: diastolic murmur, gallop, rubs, systolic murmur - GI/Abdominal GI/Abdominal exam: Present: normal bowel sounds, soft, no peritoneal signs. Absent: distended, tenderness - Extremities Exam Extremities exam: Present: warm, radial pulses palpable and symmetrical. Absent : calf tenderness, cyanotic, pedal edema - Neurological Exam Neurological exam: Present: CN II-XII intact, oriented X3, no focal deficits. Absent: pronater drift, facial droop, speech deficit - Skin Skin exam: Present: dry, intact - Patient Status Disposition: Left Against Medical Advice Condition: Fair - Discharge Instructions Follow Up With: NONE,PCP [Primary Care Provider] - Forms: ED Satisfaction Letter
--- NOTE | 2018-08-08 18:14 | Electrocardiograph Report ---
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
--- NOTE | 2018-08-08 18:15 | Electrocardiograph Report ---
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
== END 2018-08-06 10:50 | disposition left against medical advice (07) ==
LOC: 3BNU 03:17 → EMEROOARM 03:17 → 3BNU 06:05
PROVIDERS: ADMIT Internal Medicine; ATTEND Family Medicine

== ENCOUNTER 2020-01-23 00:48 | Inpatient (IN) ==
[2020-01-23 01:24] LABS: Basophils % 0.4 %; Eosinophils # 0.4 K/mcL (0.0-0.6); Eosinophils % 3.4 %; Hematocrit 38.1 % (37.5-50.1); Hemoglobin 11.4 g/dL (12.9-16.9); Immature Granulocytes % 0.7 % (0-4); Lymphocytes # 3.2 K/mcL (0.6-4.6); Lymphocytes % 30.2 %; Mean Corpuscular HGB Conc 29.9 g/dL (31.6-35.5); Mean Corpuscular Hemoglobin 27.2 pg (28.0-33.3); Mean Corpuscular Volume 90.9 fL (83.0-100.0); Mean Platelet Volume 11.6 fL (9.4-12.4); Monocytes # 1.1 K/mcL (0.0-1.3); Monocytes % 10.2 %; Neutrophils # 5.8 K/mcL (1.6-8.9); Platelet Count 264 K/mcL (140-400); Red Blood Count 4.19 M/mcL (4.19-5.50); Red Cell Distribution Width 14.7 % (11.5-14.5); Segmented Neutrophils % 55.1 %; White Blood Count 10.6 K/mcL (4.3-11.1)
[2020-01-23] MEDS ORDERED: Aspirin 81 MG TAB.CHEW PO ONE (01:25)
[2020-01-23] MEDS ORDERED: Ipratropium/Albuterol Neb 3 ML IH ONE (01:25)
[2020-01-23 01:51] LABS: BUN/Creatinine Ratio 20 (6-26); Blood Urea Nitrogen 30 mg/dL (6-20); Carbon Dioxide 23 mEq/L (23-29); Chloride 110 mEq/L (98-107); Glucose 102 mg/dL (70-105); Osmolality,Calculated 296 (280-300); Potassium 5.4 mEq/L (3.5-5.1); Sodium 140 mEq/L (136-145); Troponin I 0.05 ng/mL (< 0.04); eGFR For African Americans > 60 (> 60); eGFR For Non-African Americans 50 (> 60)
[2020-01-23] MEDS: Nitroglycerin 0.4 MG TAB.SUBL SL PRN ×3 (02:25→02:37)
[2020-01-23] MEDS ORDERED: Isovue-370 500 ML BOTTLE IVP ONE (03:01)
[2020-01-23 04:17] LABS: Amphetamine Screen,Urine Negative ng/mL (Cutoff=1000); Barbiturate Screen,Urine Negative ng/mL (Cutoff=200); Benzodiazepines Screen,Urine Negative ng/mL (Cutoff=200); Cannabinoid Screen,Urine Positive ng/mL (Cutoff = 50); Cocaine Screen,Urine Negative ng/mL (Cutoff= 300); Opiate Screen,Urine Negative ng/mL (Cutoff=300); Phencyclidine Screen,Urine Negative ng/mL (Cutoff=25)
[2020-01-23] MEDS ORDERED: Acetaminophen 325 MG TABLET PO PRN (05:14)
[2020-01-23] MEDS ORDERED: Ondansetron 4 MG/2 ML VIAL IVP PRN (05:14)
[2020-01-23] MEDS ORDERED: Naloxone 0.4 MG/ML INJ IVP PRN (05:14)
[2020-01-23] MEDS ORDERED: Furosemide 20 MG/2 ML VIAL IVP ONE (05:23)
[2020-01-23] MEDS: *HR* Heparin 5,000 UNIT/ML VIAL SQ SCH ×3 (05:56→20:26)
[2020-01-23] MEDS: Ipratropium/Albuterol Neb 3 ML IH SCH ×5 (07:38→23:44)
[2020-01-23] MEDS: Aspirin 81 MG TAB.CHEW PO SCH (08:58)
[2020-01-23] MEDS: Furosemide 40 MG/4 ML VIAL IVP SCH ×2 (09:00→15:43)
[2020-01-23 11:21] LABS: BUN/Creatinine Ratio 23 (6-26); Blood Urea Nitrogen 31 mg/dL (6-20); Calcium 9.4 mg/dL (8.6-10.3); Carbon Dioxide 26 mEq/L (23-29); Chloride 106 mEq/L (98-107); Glucose 86 mg/dL (70-105); Osmolality,Calculated 294 (280-300); Potassium 4.9 mEq/L (3.5-5.1); Sodium 139 mEq/L (136-145); eGFR For African Americans > 60 (> 60); eGFR For Non-African Americans 57 (> 60)
[2020-01-23 11:24] LABS: Troponin I 0.04 ng/mL (< 0.04)
[2020-01-23] MEDS ORDERED: *HR* LORazepam 0.5 MG TABLET PO ONE (15:36)
[2020-01-23] MEDS ORDERED: Perflutren Lipid Microsphere 1.3 ML in 0.9 % Sodium Chloride 8.7 ML IVP ONE (18:41)
[2020-01-23 20:34] LABS: Adenovirus Not Detected (Not Detect); Bordetella Pertussis Not Detected (Not Detect); Chlamydophila pneumoniae Not Detected (Not Detect); Coronavirus 229E Not Detected (Not Detect); Coronavirus HKU1 Not Detected (Not Detect); Coronavirus NL63 Not Detected (Not Detect); Coronavirus OC43 Not Detected (Not Detect); Human Metapneumovirus Not Detected (Not Detect); Human Rhinovirus/Enterovirus Not Detected (Not Detect); Influenza A Subtype 2009 H1 Not Detected (Not Detect); Influenza B Not Detected (Not Detect); Mycoplasma pneumoniae Not Detected (Not Detect); Parainfluenza Virus 1 Not Detected (Not Detect); Parainfluenza Virus 2 Not Detected (Not Detect); Parainfluenza Virus 3 Not Detected (Not Detect); Parainfluenza Virus 4 Not Detected (Not Detect); Respiratory Syncytial Virus Not Detected (Not Detect)
[2020-01-24] MEDS: Ipratropium/Albuterol Neb 3 ML IH SCH ×6 (04:10→23:54)
[2020-01-24] MEDS: *HR* Heparin 5,000 UNIT/ML VIAL SQ SCH ×3 (05:30→23:16)
[2020-01-24] MEDS: Aspirin 81 MG TAB.CHEW PO SCH (07:49)
[2020-01-24] MEDS: Furosemide 40 MG/4 ML VIAL IVP SCH ×2 (07:49→17:07)
[2020-01-24 07:52] LABS: Basophils # 0.1 K/mcL (0.0-0.2); Basophils % 0.7 %; Eosinophils # 0.5 K/mcL (0.0-0.6); Eosinophils % 5.2 %; Hematocrit 38.9 % (37.5-50.1); Hemoglobin 12.2 g/dL (12.9-16.9); Immature Granulocytes % 0.4 % (0-4); Lymphocytes % 28.8 %; Mean Corpuscular HGB Conc 31.4 g/dL (31.6-35.5); Mean Corpuscular Hemoglobin 27.2 pg (28.0-33.3); Mean Corpuscular Volume 86.8 fL (83.0-100.0); Mean Platelet Volume 11.7 fL (9.4-12.4); Monocytes # 1.2 K/mcL (0.0-1.3); Monocytes % 11.5 %; Neutrophils # 5.6 K/mcL (1.6-8.9); Platelet Count 294 K/mcL (140-400); Red Blood Count 4.48 M/mcL (4.19-5.50); Red Cell Distribution Width 14.6 % (11.5-14.5); Segmented Neutrophils % 53.4 %; White Blood Count 10.5 K/mcL (4.3-11.1)
[2020-01-24 08:09] LABS: INR 1.1; Prothrombin Time 12.8 Seconds (9.4-12.1)
[2020-01-24 08:13] LABS: Alanine Aminotransferase 64 Units/L (7-52); Albumin 3.9 g/dL (3.5-5.7); Albumin/Globulin Ratio 1.5 (1.1-2.2); Alkaline Phosphatase 101 Units/L (34-104); Aspartate Amino Transferase 43 Units/L (13-39); BUN/Creatinine Ratio 25 (6-26); Bilirubin,Total 0.9 mg/dL (0.3-1.0); Blood Urea Nitrogen 35 mg/dL (6-20); Calcium 9.3 mg/dL (8.6-10.3); Carbon Dioxide 26 mEq/L (23-29); Chloride 105 mEq/L (98-107); Chol/HDL Ratio 3.4 (0-4.9); Cholesterol 122 mg/dL (< 200); Globulin 2.6 g/dL (2.4-3.5); Glucose 91 mg/dL (70-105); HDL Cholesterol 36 mg/dL (40-59); LDL Cholesterol,Calculated 65 mg/dL (0-99); Magnesium 2.1 mg/dL (1.6-2.6); Osmolality,Calculated 296 (280-300); Phosphorous 3.9 mg/dL (2.7-4.5); Potassium 3.7 mEq/L (3.5-5.1); Sodium 139 mEq/L (136-145); Total Protein 6.5 g/dL (6.4-8.9); Triglycerides 103 mg/dL (< 150); eGFR For African Americans > 60 (> 60); eGFR For Non-African Americans 54 (> 60)
[2020-01-25] MEDS: Ipratropium/Albuterol Neb 3 ML IH SCH ×6 (03:44→23:39)
[2020-01-25] MEDS: *HR* Heparin 5,000 UNIT/ML VIAL SQ SCH ×3 (06:06→20:48)
[2020-01-25] MEDS ORDERED: tiZANidine 4 MG TABLET PO STA (06:33)
[2020-01-25] MEDS: Furosemide 40 MG/4 ML VIAL IVP SCH (08:01)
[2020-01-25] MEDS: Aspirin 81 MG TAB.CHEW PO SCH (08:01)
[2020-01-25 08:46] LABS: Calcium 9.2 mg/dL (8.6-10.3); Potassium 3.8 mEq/L (3.5-5.1)
[2020-01-25 10:34] LABS: Hematocrit 44.2 % (37.5-50.1); Hemoglobin 13.7 g/dL (12.9-16.9); Mean Corpuscular Hemoglobin 26.6 pg (28.0-33.3); Mean Corpuscular Volume 85.7 fL (83.0-100.0); Mean Platelet Volume 11.7 fL (9.4-12.4); Platelet Count 337 K/mcL (140-400); Red Blood Count 5.16 M/mcL (4.19-5.50); Red Cell Distribution Width 14.6 % (11.5-14.5); White Blood Count 9.9 K/mcL (4.3-11.1)
[2020-01-26 03:07] LABS: Basophils # 0.1 K/mcL (0.0-0.2); Basophils % 0.6 %; Eosinophils # 0.8 K/mcL (0.0-0.6); Eosinophils % 6.6 %; Hematocrit 40.1 % (37.5-50.1); Hemoglobin 12.6 g/dL (12.9-16.9); Immature Granulocytes % 0.5 % (0-4); Lymphocytes # 2.8 K/mcL (0.6-4.6); Lymphocytes % 24.8 %; Mean Corpuscular HGB Conc 31.4 g/dL (31.6-35.5); Mean Corpuscular Hemoglobin 27.3 pg (28.0-33.3); Mean Platelet Volume 11.6 fL (9.4-12.4); Monocytes # 1.7 K/mcL (0.0-1.3); Monocytes % 14.7 %; Platelet Count 319 K/mcL (140-400); Red Blood Count 4.61 M/mcL (4.19-5.50); Red Cell Distribution Width 14.6 % (11.5-14.5); Segmented Neutrophils % 52.8 %; White Blood Count 11.3 K/mcL (4.3-11.1)
[2020-01-26 03:25] LABS: BUN/Creatinine Ratio 30 (6-26); Blood Urea Nitrogen 43 mg/dL (6-20); Calcium 9.2 mg/dL (8.6-10.3); Carbon Dioxide 24 mEq/L (23-29); Chloride 107 mEq/L (98-107); Glucose 82 mg/dL (70-105); Osmolality,Calculated 302 (280-300); Potassium 3.7 mEq/L (3.5-5.1); Sodium 141 mEq/L (136-145); eGFR For African Americans > 60 (> 60); eGFR For Non-African Americans 53 (> 60)
[2020-01-26] MEDS: Ipratropium/Albuterol Neb 3 ML IH SCH ×6 (03:58→23:31)
[2020-01-26] MEDS: *HR* Heparin 5,000 UNIT/ML VIAL SQ SCH ×3 (05:43→21:55)
[2020-01-26] MEDS ORDERED: Metoprolol XL (24 HR) Succ 25 MG TAB.ER.24H PO SCH (09:00)
[2020-01-26] MEDS: Aspirin 81 MG TAB.CHEW PO SCH (11:25)
[2020-01-26] MEDS ORDERED: Heparin 1,000 UNITS/500 mL 500 ML ONE (13:43)
[2020-01-26] MEDS ORDERED: 0.9 % Sodium Chloride 2,000 ML ONE (13:43)
[2020-01-26] MEDS ORDERED: *HR* Heparin 10,000 UNIT/10 ML VIAL ONE (13:43)
[2020-01-26] MEDS ORDERED: ISOVUE-370 200 ML INFUS..BTL ONE (13:44)
[2020-01-26] MEDS ORDERED: Nitroglycerin 1,000 MCG/10 ML VIAL IV ONE (13:44)
[2020-01-26] MEDS ORDERED: *HR* FentaNYL (PF) 100 MCG/2 ML VIAL ONE (13:58)
[2020-01-26] MEDS ORDERED: *HR* Midazolam HCl 2 MG/2 ML VIAL ONE (13:58)
[2020-01-26] MEDS: carvediloL 6.25 MG TABLET PO SCH (16:20)
[2020-01-27] MEDS: Ipratropium/Albuterol Neb 3 ML IH SCH ×3 (03:20→12:05)
[2020-01-27] MEDS: *HR* Heparin 5,000 UNIT/ML VIAL SQ SCH (05:24)
[2020-01-27 05:44] LABS: Hematocrit 39.4 % (37.5-50.1); Hemoglobin 11.8 g/dL (12.9-16.9); Mean Corpuscular HGB Conc 29.9 g/dL (31.6-35.5); Mean Corpuscular Hemoglobin 26.5 pg (28.0-33.3); Mean Corpuscular Volume 88.5 fL (83.0-100.0); Mean Platelet Volume 11.2 fL (9.4-12.4); Platelet Count 285 K/mcL (140-400); Red Blood Count 4.45 M/mcL (4.19-5.50); Red Cell Distribution Width 14.8 % (11.5-14.5); White Blood Count 9.2 K/mcL (4.3-11.1)
[2020-01-27 06:03] LABS: BUN/Creatinine Ratio 26 (6-26); Blood Urea Nitrogen 32 mg/dL (6-20); Calcium 8.5 mg/dL (8.6-10.3); Carbon Dioxide 22 mEq/L (23-29); Chloride 113 mEq/L (98-107); Glucose 110 mg/dL (70-105); Osmolality,Calculated 298 (280-300); Potassium 4.4 mEq/L (3.5-5.1); Sodium 140 mEq/L (136-145); eGFR For African Americans > 60 (> 60); eGFR For Non-African Americans > 60 (> 60)
[2020-01-27] MEDS ORDERED: Furosemide Oral Soln 40 MG/4 ML UDC PO SCH (09:00)
[2020-01-27] MEDS ORDERED: Spironolactone 25 MG TABLET PO SCH (09:00)
[2020-01-27] MEDS: Aspirin 81 MG TAB.CHEW PO SCH (09:15)
[2020-01-27] MEDS: carvediloL 6.25 MG TABLET PO SCH (09:15)
[2020-01-27] MEDS ORDERED: lisinopriL 5 MG TABLET PO SCH (10:15)
[2020-01-27 10:40] VITALS: BP 127/78
== END 2020-01-27 13:05 | disposition home or self-care (01) | DRG 192 ==
LOC: EMEROOARM 00:48 → 3BNU 00:48 → SUATTDRO 04:00 → 3BNU 04:21
PROVIDERS: ADMIT Internal Medicine; ATTEND Internal Medicine